=== PATIENT | female | born 2000 | race Caucasian/White ===

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

== ENCOUNTER → 2020-02-07 14:27 | Outpatient (BNVA) | payer MEDICAID, SELFPAY | PROVIDERS: PCP Family Medicine; Visit Provider Obstetrics & Gynecology | DX: N92.6 Irregular menstruation, unspecified (principal) | CPT/HCPCS: 83001; 84146; 84443; 84702 ==

== ENCOUNTER → 2020-02-14 14:20 | Outpatient (BNVA) | payer MEDICAID, SELFPAY | PROVIDERS: PCP Family Medicine; Visit Provider Obstetrics & Gynecology | DX: N93.9 Abnormal uterine and vaginal bleeding, unspecified (principal); N83.02 Follicular cyst of left ovary | CPT/HCPCS: 76830 ==

== ENCOUNTER 2020-03-19 12:27 | Outpatient (RCR) | payer MEDICAID, SELFPAY | END 2020-04-09 23:59 | disposition home or self-care (01) | LOC: SPT 12:27 | PROVIDERS: PCP Nurse Practitioner; Referring Provider Nurse Practitioner Family; Visit Provider Nurse Practitioner Family | DX: M54.2 Cervicalgia (principal); G89.29 Other chronic pain | CPT/HCPCS: 97110; 97161 ==

== ENCOUNTER 2020-04-08 15:00 | Outpatient (CLI) | payer MEDICAID, SELFPAY ==
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
== END 2020-04-08 15:01 | disposition home or self-care (01) ==
LOC: RADWPI 15:02
PROVIDERS: PCP Nurse Practitioner; Visit Provider Nurse Practitioner
DX: Z87.81 Personal history of (healed) traumatic fracture (principal); M47.812 Spondylosis without myelopathy or radiculopathy, cervical region
CPT/HCPCS: 72156; A9579

== ENCOUNTER 2020-06-03 11:15 | Outpatient (CLI) | payer MEDICAID, SELFPAY ==
--- NOTE | 2020-06-03 11:45 | US_ITS ---
WS: [id number] ULTRASOUND BREAST LEFT TECHNIQUE: Ultrasound left breast focused area of concern. CLINICAL INFORMATION: N63.20 - Unspecified lump in the left breast, unspecified quadrant COMPARISON: None. FINDINGS: Ultrasound left breast measuring 9-12:00. Normal underlying breast parenchymal tissue. No cystic or s olid lesions. No lesions to target for biopsy. No suspicious findings. US/US breast LT limited* [id number] IMPRESSION: BI-RADS 2 benign FOLLOW UP: Recommend Annual screening mammography age 40
== END 2020-06-03 11:16 | disposition home or self-care (01) ==
LOC: RADSHAW 11:16
PROVIDERS: PCP Nurse Practitioner; Visit Provider Obstetrics & Gynecology
DX: N63.20 Unspecified lump in the left breast, unspecified quadrant (principal)
CPT/HCPCS: 76642

== ENCOUNTER 2020-07-29 09:09 | Emergency (ER) | payer MEDICAID, SELFPAY ==
[2020-07-29 09:16] VITALS: BP 132/81; PULSE 100; RESP 16; TEMP 36.7; O2SAT 100; BMI 24.2
[2020-07-29 09:31] VITALS: BP 120/78; PULSE 79; RESP 18; O2SAT 98
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
[2020-07-29] MEDS: ketorolac 60 mg/2 mL INJ IM (10:22)
[2020-07-29 11:50] VITALS: BP 103/80; PULSE 64; RESP 18; TEMP 36.6; O2SAT 99
== END 2020-07-29 11:53 | disposition home or self-care (01) ==
PROVIDERS: Emergency Provider Physician Assistant; PCP Nurse Practitioner
DX: G44.319 Acute post-traumatic headache, not intractable (principal); S13.4XXA Sprain of ligaments of cervical spine, initial encounter; F17.210 Nicotine dependence, cigarettes, uncomplicated; V89.2XXA Person injured in unspecified motor-vehicle accident, traffic, initial encounter
CPT/HCPCS: 70450; 72125; 96372; 99283; J1885

== ENCOUNTER 2020-09-19 20:42 | Emergency (ER) | payer MEDICAID, SELFPAY ==
[2020-09-19 20:53] VITALS: BP 115/75; PULSE 67; RESP 16; TEMP 36.7; O2SAT 98; BMI 23.2
--- NOTE | 2020-09-19 21:03 | XRR_ITS ---
PROCEDURE INFORMATION: Exam: XR Chest Exam date and time: 09/19/2020 9:03 PM Age: 20 years old Clinical indication: Dyspnea; Additional info: Shortness of breath TECHNIQUE: Imaging protocol: XR of the chest. Views: 2 views. COMPARISON: CR XR chest 2V* [id number] 08/03/2020 2:57 PM FINDINGS: Lungs: Unremarkable. No consolidation. Pleural spaces: Unremarkable. No pleural effusion. No pneumothorax. Heart/Mediastinum: Unremarkable. No cardiomegaly. Bones/joints: Unremarkable. XR/XR chest 2V* [id number] IMPRESSION: No acute findings.
--- NOTE | 2020-09-19 21:25 | ED_ITS ---
HPI - URI/Sore Throat General: Chief Complaint: Upper Respiratory Infection Stated Complaint: FEELS LIKE THROAT CLOSING, DIFF BREATHING Time Seen by Provider: 09/19/20 21:25 History of Present Illness: HPI Narrative: Patient reports tenderness and soreness to the lower chest anterior wall/epigastric area of the abdomen. Patient reports 2 days ago she did become ill at work and threw up several times but has not thrown up since. Patient also reports some mild sore throat. Patient appears well. Patient appears no acute distress. Patient's last menstrual cycle was about 3 weeks ago. MD elicited complaint: cough Onset (ago): day(s) Consistency: constant Severity: mild Review of Systems General: Reports: 10 or more systems reviewed and unremarkable except in HPI and below Card: Reports: other (Lower anterior chest wall tenderness) [facility] ED PFSH: Medical History Irregular menses Family History Mother Cervical cancer Colon cancer Family/Other Diabetes maternal side Hypertension maternal side Thyroid condition maternal side Denies family history of Ovarian cancer Clotting disorder Heart disease Hyperlipidemia Breast cancer Anesthesia complication Bleeding disorder Uterine cancer Stroke Social History Smoking and tobacco status: current every day smoker cigarettes Packs smoked per day: 0.5 Alcohol intake: never Female Reproductive History: Date of last menstrual period: 07/22/20 Physical Exam Const: COMMON NORMALS: no acute distress and patient oriented x3 GENERAL APPEARANCE: cooperative HENMT: COMMON NORMALS: normocephalic, TM's normal bilaterally and Normal external nose present HEAD & SCALP: normal to inspection and normocephalic NOSE: Normal external nose present TYMPANIC MEMBRANE: TM's normal bilaterally MOUTH: Normal oral and palatal mucosa present THROAT: posterior oropharynx abnormal erythema Eye: GENERAL EYE: appearance normal, both eyes and all related structures Neck/C-Spine: COMMON NORMALS: full ROM Lymph: LYMPHATIC: lymphadenopathy (Mild anterior cervical) Chest: COMMONS NORMALS: normal inspection of the chest Resp: COMMON NORMALS: normal respiratory effort EFFORT & INSPECTION: Yes able to speak in complete sentences Cardio: COMMON NORMALS: regular rate and regular rhythm RATE: regular rate RHYTHM: regular rhythm GI: COMMON NORMALS: Soft to palpation AUSCULTATION: Yes normoactive bowel sounds PALPATION: Yes Soft to palpation : COMMON NORMALS: Yes no CVA tenderness BLADDER/KIDNEY EXAM: Yes no CVA tenderness Back/Pelvis: COMMON NORMALS: no CVA tenderness and thoracic and lumbar spine normal to inspection Extremity: COMMON NORMALS: normal to inspection Neuro: COMMON NORMALS: patient oriented x3 and moves all extremities Psych: COMMON NORMALS: mental status grossly normal and cooperative Skin: COMMON NORMALS: no rashes or lesions noted GENERAL SKIN EXAM: no rashes or lesions noted Course Vital Signs: Vital signs: Vital Signs Temperature 98.0 F 09/19/20 20:53 Pulse Rate 67 09/19/20 20:53 Respiratory Rate 16 09/19/20 20:53 Blood Pressure 115/75 09/19/20 20:53 Pulse Oximetry 98 09/19/20 20:53 MDM - URI/Sore Throat MDM Narrative: Medical decision making narrative: Patient comes in with lower chest wall anterior pain and sore throat. Patient reports like 2 days ago she had an bout of nausea and vomiting. Since then patient had some anterior chest wall tenderness and a sore throat. On exam abdomen is soft with some upper abdominal muscle tenderness, and lower chest wall tenderness. Lungs are clear to auscultation. Skin is warm and dry. Vital signs are normal. Differential diagnosis includes but not limited to contusion, strain, malingering. Chest x- ray was normal. Strep test was negative. Urine test was negative. Feel the patient probably has muscle strain secondary to her bout of nausea and vomiting. This was most likely caused by a viral syndrome. Strep test was negative and chest x-ray was normal. Patient was also negative for . I encouraged to drink plenty of fluids use Tylenol or ibuprofen for pain and follow-up as needed. Patient reported understanding. Lab Data: Labs: Lab Results 09/19/20 09/19/20 Range/Units 21:23 21:49 HCG, Qual Negative (Negative) Group A Strep Rapi d Negative (Negative) Discharge Plan Discharge Patient Disposition: Home Clinical Impression: Atypical chest pain Pharyngitis Qualifiers: Pharyngitis/tonsillitis etiology: unspecified etiology Qualified Code(s): J02.9 - Acute pharyngitis, unspecified Condition: Stable Prescriptions: No Action cetirizine 10 mg capsule 10 mg PO DAILY RF: 0 naproxen 500 mg tablet 500 mg PO BID PRNRF: 0 ibuprofen 400 mg tablet 400 mg PO Q8H PRN (Reason: Abnormal uterine bleeding) Qty: 90 RF: 3 cyclobenzaprine 5 mg tablet 5 mg PO BID PRN (Reason: muscle spasm) Qty: 20 RF: 0 Discharge Orders: Discharge ED (Routine); Ordered 09/19/20 Ordered By: Vijay Hopkins Referrals: Lara Ashby, COMPONENTS ENGINEER [Primary Care Provider] - Discharge Diet: Usual diet Discharge Activity: Increase activity as tolerated Patient Instructions: Chest Pain (ED), Opioid Safety Activity Restrictions/Additional Instructions: Drink plenty of water. Use acetaminophen or ibuprofen for pain. Activity as tolerated. Monitor for fever or new symptoms. Return to the ER as needed. Follow-up with primary care as needed. 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
[2020-09-19 21:35] LABS: Rapid Strep A Test Negative (Negative)
[2020-09-19 21:56] LABS: HCG Qualitative Urine. Negative (Negative)
[2020-09-19 22:25] VITALS: BP 117/77; PULSE 62; RESP 18; O2SAT 99
== END 2020-09-19 22:25 | disposition home or self-care (01) ==
PROVIDERS: Emergency Provider Nurse Practitioner Family; PCP Nurse Practitioner
DX: J02.9 Acute pharyngitis, unspecified (principal); F17.210 Nicotine dependence, cigarettes, uncomplicated
CPT/HCPCS: 71046; 81025; 87081; 87880; 99283

== ENCOUNTER 2020-10-08 16:39 | Emergency (ER) | payer MEDICAID, SELFPAY ==
--- NOTE | 2020-10-08 16:43 | XRR_ITS ---
PROCEDURE INFORMATION: Exam: XR Chest Exam date and time: 10/08/2020 4:43 PM Age: 20 years old Clinical indication: Sternal or substernal pain; Patient HX: Cp, cough, throwing up blood; Additional info: Chest pain, cough TECHNIQUE: Imaging protocol: XR of the chest. Views: 1 view. COMPARISON: CR (CHEST, ) 09/19/2020 9:37 PM FINDINGS: Lungs: Unremarkable. No consolidation. Pleural spaces: Unremarkable. No pleural effusion. No pneumothorax. Heart/Mediastinum: Unremarkable. No cardiomegaly. Bones/joints: Unremarkable. XR/XR chest 1V portable [id number] IMPRESSION: No acute findings.
[2020-10-08 17:37] VITALS: BP 122/72; PULSE 95; RESP 18; TEMP 36.9; O2SAT 96; BMI 23.2
[2020-10-08 20:25] LABS: Basophils # 0.1 10^3/uL (0.0-0.1); Basophils % 0.6 %; Eosinophils # 0.1 10^3/uL (0.0-0.8); Eosinophils % 1.2 %; Hematocrit 44.8 % (37.0-47.0); Hemoglobin 15.1 g/dL (11.5-15.3); Lymphocytes # 3.1 10^3/uL (1.5-6.5); Mean Corpuscular HGB Conc 33.7 g/dL (30.0-36.0); Mean Corpuscular Hemoglobin 30.1 pg (28.0-34.0); Mean Corpuscular Volume 89.2 fL (81-99); Monocytes # 0.5 10^3/uL (0.2-0.9); Monocytes % 5.5 %; Neutrophils # 4.45 10^3/uL (1.8-8.0); Neutrophils % 54.5 %; Nucleated Red Blood Cells % 0 %; Platelet Count 353 10^3/cmm (130-400); Red Blood Count 5.02 10^6/uL (4.1-5.3); Red Cell Distribution Width 12.3 % (12.1-15.1); White Blood Count 8.2 10^3/uL (4.5-13.0)
[2020-10-08 20:41] LABS: Alanine Aminotransferase 21 U/L (0-33); Albumin Level 4.7 g/dL (3.5-5.2); Alkaline Phosphatase 68 IU/L (35-105); Anion Gap 14.1 (5-19); Aspartate Amino Transferase 25 U/L (0-32); Blood Urea Nitrogen 7 mg/dL (6-20); Calcium 9.2 mg/dL (8.5-10.5); Carbon Dioxide 24 mmol/L (22-29); Chloride 106 mmol/L (98-107); Globulin 2.7 g/dL (1.3-4.6); Glomerular Filtration Rate 157.3 mL/min (90-130); Glucose 88 mg/dL (65-115); Osmolality Calculated 287 mOsm/kg (285-295); Potassium 4.1 mmol/L (3.5-5.1); Sodium 140 mmol/L (136-145); Total Bilirubin 0.4 mg/dL (0.15-1.2); Total Protein 7.4 g/dL (6.6-8.7)
--- NOTE | 2020-10-08 21:13 | W.ED.CHESTPA ---
HPI - Chest Pain General: Chief Complaint: Chest Pain Stated Complaint: chest pain, blood in throw up,coughing Time Seen by Provider: 10/08/20 21:13 History of Present Illness: HPI narrative: 20-year-old female comes in today for complaints of upper abdomen/lower chest wall discomfort. Patient reports that for the last 2 weeks she has had the symptoms. Patient was seen on September 19 for similar symptoms. Patient appears well. Patient appears in no acute distress. Patient does report one episode of emesis this morning with some improvement in pain afterwards and noticing some blood in the emesis. Associated symptoms: Reports nausea and vomiting Review of Systems General: Reports: 10 or more systems reviewed and unremarkable except in HPI and below Card: Reports: chest pain GI: Reports: nausea and vomiting PFSH ED PFSH: Medical History Irregular menses Family History Mother Cervical cancer Colon cancer Family/Other Diabetes maternal side Hypertension maternal side Thyroid condition maternal side Denies family history of Ovarian cancer Clotting disorder Heart disease Hyperlipidemia Breast cancer Anesthesia complication Bleeding disorder Uterine cancer Stroke Social History Smoking and tobacco status: current every day smoker cigarettes Packs smoked per day: 0.5 Alcohol intake: never Female Reproductive History: Date of last menstrual period: 07/22/20 Physical Exam Const: COMMON NORMALS: no acute distress and patient oriented x3 GENERAL APPEARANCE: cooperative HENMT: COMMON NORMALS: normocephalic, TM's normal bilaterally and Normal external nose present HEAD & SCALP: normal to inspection and normocephalic NOSE: Normal external nose present TYMPANIC MEMBRANE: TM's normal bilaterally MOUTH: Normal oral and palatal mucosa present THROAT: posterior oropharynx normal Eye: GENERAL EYE: appearance normal, both eyes and all related structures Neck/C-Spine: COMMON NORMALS: full ROM Lymph: LYMPHATIC: no lymphadenopathy noted Chest: COMMONS NORMALS: normal inspection of the chest Resp: COMMON NORMALS: normal respiratory effort EFFORT & INSPECTION: Yes able to speak in complete sentences Cardio: COMMON NORMALS: regular rate and regular rhythm RATE: regular rate RHYTHM: regular rhythm GI: COMMON NORMALS: Soft to palpation PALPATION: Yes Soft to palpation and Yes Tenderness to palpation present (GI) (Epigastric) : COMMON NORMALS: Yes no CVA tenderness BLADDER/KIDNEY EXAM: Yes no CVA tenderness Back/Pelvis: COMMON NORMALS: no CVA tenderness and thoracic and lumbar spine normal to inspection Extremity: COMMON NORMALS: normal to inspection Neuro: COMMON NORMALS: patient oriented x3 and moves all extremities Psych: COMMON NORMALS: mental status grossly normal and cooperative Skin: COMMON NORMALS: no rashes or lesions noted GENERAL SKIN EXAM: no rashes or lesions noted Course Vital Signs: Vital signs: Vital Signs Temperature 98.4 F 10/08/20 17:37 Pulse Rate 95 10/08/20 17:37 Respiratory Rate 18 10/08/20 17:37 Blood Pressure 122/72 10/08/20 17:37 Pulse Oximetry 96 10/08/20 17:37 MDM - Chest Pain MDM Narrative: Medical decision making narrative: Patient comes in with lower chest/epigastric discomfort. On exam abdomen is soft with some epigastric tenderness. Patient also has some anterior lower chest wall tenderness bilaterally. Patient appears well. Patient appears no acute distress. Vital signs are normal. Differential diagnosis includes not limited to gastritis, muscle strain, reflux. Laboratory values were unremarkable. Exam signifies some epigastric tenderness may be suggestive of gastritis. Patient did report a tender blood in her emesis this morning. Recommended patient be put on Protonix for her discomfort. Follow-up with primary care for further evaluation. Patient reported understanding and agreed to plan. Lab Data: Labs: Lab Results 10/08/20 10/08/20 Range/Units 20:18 20:18 WBC 8.2 (4.5-13.0) 10^3/ uL RBC 5.02 (4.1-5.3) 10^6/u L Hgb 15.1 (11.5-15.3) g/dL Hct 44.8 (37.0-47.0) % MCV 89.2 (81-99) fL MCH 30.1 (28.0-34.0) pg MCHC 33.7 (30.0-36.0) g/dL RDW 12.3 (12.1-15.1) % Plt Count 353 (130-400) 10^3/c mm MPV 10.0 (7.4-10.4) fL Neut % (Auto) 54.5 % Lymph % (Auto) 38.0 % Sunflower % (Auto) 5.5 % Eos % (Auto) 1.2 % Baso % (Auto) 0.6 % Neut # (Auto) 4.45 (1.8-8.0) 10^3/u L Lymph # (Auto) 3.1 (1.5-6.5) 10^3/u L Sunflower # (Auto) 0.5 (0.2-0.9) 10^3/u L Eos # (Auto) 0.1 (0.0-0.8) 10^3/u L Baso # (Auto) 0.1 (0.0-0.1) 10^3/u L Nucleated RBC % (a uto) 0 % Nucleated RBCs # 0.0 /100WBC Sodium 140 (136-145) mmol/L Potassium 4.1 (3.5-5.1) mmol/L Chloride 106 (98-107) mmol/L Carbon Dioxide 24 (22-29) mmol/L Anion Gap 14.1 (5-19) BUN 7 (6-20) mg/dL Creatinine 0.5 (0.5-0.9) mg/dL GFR Calculation 157.3 H (90-130) mL/min Glucose 88 (65-115) mg/dL Calculated Osmolal ity 287 (285-295) mOsm/k g Calcium 9.2 (8.5-10.5) mg/dL Total Bilirubin 0.4 (0.15-1.2) mg/dL AST 25 (0-32) U/L ALT 21 (0-33) U/L Alkaline Phosphata se 68 (35-105) IU/L Total Protein 7.4 (6.6-8.7) g/dL Albumin 4.7 (3.5-5.2) g/dL Globulin 2.7 (1.3-4.6) g/dL Discharge Plan Discharge Patient Disposition: Home Clinical Impression: Atypical chest pain Gastritis Qualifiers: Gastritis type: unspecified gastritis Chronicity: acute Gastritis bleeding: with bleeding Qualified Code(s): K29.01 - Acute gastritis with bleeding Condition: Stable Prescriptions: New pantoprazole 20 mg tablet,delayed release (DR/EC) 20 mg PO DAILY 28 Days RF: 0 No Action cetirizine 10 mg capsule 10 mg PO DAILY RF: 0 naproxen 500 mg tablet 500 mg PO BID PRNRF: 0 ibuprofen 400 mg tablet 400 mg PO Q8H PRN (Reason: Abnormal uterine bleeding) Qty: 90 RF: 3 cyclobenzaprine 5 mg tablet 5 mg PO BID PRN (Reason: muscle spasm) Qty: 20 RF: 0 Discharge Orders: Discharge ED (Routine); Ordered 10/08/20 Ordered By: Vijay Hopkins Referrals: Lara Ashby, EXTRACTOR OPERATOR HELPER [Primary Care Provider] - Discharge Diet: Usual diet Discharge Activity: Increase activity as tolerated Patient Instructions: Gastritis (ED), Opioid Safety Activity Restrictions/Additional Instructions: Drink plenty of fluids. Take medication 30 minutes prior to the first meal of the day. Avoid smoking, carbonated beverages, and acidic foods. Avoid eating 2 hours before bedtime. Follow-up with primary care in 1 week for recheck. Return to the emergency department for worsening symptoms or new concerns. 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
[2020-10-08 21:58] VITALS: PULSE 70; RESP 20; O2SAT 98
== END 2020-10-08 21:24 | disposition home or self-care (01) ==
PROVIDERS: Physician Assistant; Emergency Provider Nurse Practitioner Family; PCP Nurse Practitioner
DX: R07.9 Chest pain, unspecified (principal); F17.210 Nicotine dependence, cigarettes, uncomplicated
CPT/HCPCS: 71045; 80053; 85025; 99282

== ENCOUNTER 2020-10-24 15:38 | Emergency (ER) | payer MEDICAID, SELFPAY ==
[2020-10-24 15:52] VITALS: BP 114/76; PULSE 116; RESP 18; TEMP 36.6; O2SAT 98; BMI 23.2
--- NOTE | 2020-10-24 16:34 | PC.NURSE ---
PT ARRIVED TO ROOM FROM [facility] WAITING ROOM.
[2020-10-24] MEDS: sodium chloride 0.9% 1,000 ML 999 ML IV (17:33)
[2020-10-24] MEDS: ondansetron 2 mg/ML SDV 2 mL 4 MG IVP (17:33)
[2020-10-24 17:38] LABS: Basophils % 0.4 %; Eosinophils # 0.1 10^3/uL (0.0-0.8); Eosinophils % 1.2 %; Hematocrit 44.6 % (37.0-47.0); Hemoglobin 15.1 g/dL (11.5-15.3); Lymphocytes # 1.9 10^3/uL (1.5-6.5); Lymphocytes % 32.7 %; Mean Corpuscular HGB Conc 33.9 g/dL (30.0-36.0); Mean Corpuscular Volume 88.7 fL (81-99); Mean Platelet Volume 10.8 fL (7.4-10.4); Monocytes # 0.5 10^3/uL (0.2-0.9); Monocytes % 8.7 %; Neutrophils # 3.21 10^3/uL (1.8-8.0); Neutrophils % 56.8 %; Nucleated Red Blood Cells % 0 %; Platelet Count 266 10^3/cmm (130-400); Red Blood Count 5.03 10^6/uL (4.1-5.3); White Blood Count 5.7 10^3/uL (4.5-13.0)
[2020-10-24 17:58] LABS: Alanine Aminotransferase 17 U/L (0-33); Albumin Level 4.5 g/dL (3.5-5.2); Alkaline Phosphatase 58 IU/L (35-105); Anion Gap 14.8 (5-19); Aspartate Amino Transferase 22 U/L (0-32); Blood Urea Nitrogen 6 mg/dL (6-20); Calcium 8.9 mg/dL (8.5-10.5); Carbon Dioxide 25 mmol/L (22-29); Chloride 104 mmol/L (98-107); Globulin 2.9 g/dL (1.3-4.6); Glomerular Filtration Rate 157.3 mL/min (90-130); Glucose 98 mg/dL (65-115); Lipase 19 U/L (13-60); Osmolality Calculated 288 mOsm/kg (285-295); Potassium 3.8 mmol/L (3.5-5.1); Sodium 140 mmol/L (136-145); Total Bilirubin 0.4 mg/dL (0.15-1.2); Total Protein 7.4 g/dL (6.6-8.7)
[2020-10-24 18:07] LABS: HCG, Serum Qual Negative (Negative)
[2020-10-24 18:27] VITALS: RESP 14; O2SAT 98
[2020-10-24 18:29] LABS: Add Urine Culture? Yes; Add Urine Microscopic? YES; Bacteria Urine TRACE /hpf; Bilirubin Urine Neg (Negative); Blood Urine 3+ (Negative); Glucose Urine UA Norm (Normal); Ketones Urine Negative (Negative); Leukocyte Esterase Urine Negative (Negative); Nitrate Urine Negative (Negative); Protein Urine Neg (Negative); RBC Urine 15-25 /hpf (0-2); Sulfosalicylic Acid Urine Negative (Negative); Urine Appearance SL Hazy (CLEAR); Urine Color Dark Yellow (Yellow); Urobilinogen Urine Norm (Negative); WBC Urine 0-4 /hpf (0-5); pH Urine 8 (5-7)
--- NOTE | 2020-10-24 18:33 | USR_ITS ---
PROCEDURE INFORMATION: Exam: US Pelvis, Transvaginal Exam date and time: 10/24/2020 6:33 PM Age: 20 years old Clinical indication: Menstruation abnormalities; Excessive menstruation; With regular cycle; Additional info: Menorrhagia TECHNIQUE: Imaging protocol: Real-time transvaginal pelvic ultrasound with image documentation. Transvaginal imaging was used for better evaluation of the endometrium, adnexa, and/or cervix. COMPARISON: US transvaginal [id number] 02/14/2020 2:22 PM FINDINGS: Uterus/cervix: The uterus is unremarkable. The uterus measures 7.0 x 2.9 x 4.2 cm. The endometrium is unremarkable. Endometrium measures 0.8 mm. Right adnexa: Multiple subcentimeter follicles in the right ovary. The right ovary measures 3.1 x 2.3 x 2.4 cm. There is flow in the right ovary on Doppler imaging. Left adnexa: Multiple subcentimeter follicles in the left ovary. The left ovary measures 3.1 x 2.8 x 2.2 cm. There is flow in the left ovary on Doppler imaging. Intraperitoneal space: No free fluid in the pelvis. US/US transvaginal [id number] IMPRESSION: 1. No acute abnormality in the pelvis. 2. Multiple subcentimeter follicles in both right and left ovaries.
[2020-10-24 19:36] VITALS: PULSE 66; RESP 18; O2SAT 100
[2020-10-24 19:39] VITALS: BP 109/68; TEMP 37.1
--- NOTE | 2020-10-24 19:41 | ED_ITS ---
HPI - Female Genitourinary General: Chief complaint: Vaginal Bleeding Stated complaint: Vaginal bleeding Time Seen by Provider: 10/24/20 16:30 History of Present Illness: HPI Narrative: The patient is a 20-year-old female who comes to the ER complaining of passing large blood clots from her vagina. She says she has normal periods however this period is exceptionally heavy and it is unusual for her she has never passed blood clots is large. They are painful and they are passing she says. She is gone through several tampons in the past several hours. She admits unprotected sexual activity and does not know if she is . Denies vaginal discharge that is not bloody. She is currently suffering from Covid and says her symptoms are much improved over the past few days. MD elicited complaint: vaginal bleeding Onset (ago): day(s) (1) Severity: moderate Female Urogenital Radiation: Suprapubic Quality of pain: cramping Vaginal bleeding: moderate and clots Relieving factors: none Associated symptoms: Deny abdominal pain, headache(s) or vaginal discharge Possible : unsure if Date of Last Menstrual Period: 07/22/20 Review of Systems General: Reports: 10 or more systems reviewed and unremarkable except in HPI and below Const: Denies: fatigue Eyes: Denies: change in vision, blurry vision or eye redness ENMT: Denies: throat pain, swelling of lips/tongue, ear or mastoid pain or nasal congestion Card: Denies: chest pain, palpitations, irregular heart rhythm, edema, dyspnea on exertion or orthopnea Resp: Denies: dyspnea, productive cough or non-productive cough GI: Denies: abdominal pain, diarrhea or GI cramping : Reports: vaginal bleeding; Denies: flank pain, difficulty voiding, urinary frequency, urinary urgency or vaginal discharge Musc: Denies: neck pain, back pain, extremity pain, joint pain, joint redness, limited range of motion or muscle weakness Skin/Breast: Denies: rash, pruritus, erythema, skin pain or skin tenderness Neuro: Denies: headache(s), numbness in extremities, weakness in extremities, sensory changes, difficulty walking, dizziness, confusion or Slurred speech present Psych: Denies: anxiety or depression Endo: Denies: polyuria All/Imm: Denies: urticaria, throat swelling or tongue swelling PFSH ED PFSH: Medical History Irregular menses Family History Mother Cervical cancer Colon cancer Family/Other Diabetes maternal side Hypertension maternal side Thyroid condition maternal side Denies family history of Ovarian cancer Clotting disorder Heart disease Hyperlipidemia Breast cancer Anesthesia complication Bleeding disorder Uterine cancer Stroke Social History Smoking and tobacco status: current every day smoker cigarettes Packs smoked per day: 0.5 Alcohol intake: never Female Reproductive History: Date of last menstrual period: 07/22/20 Physical Exam Const: COMMON NORMALS: no acute distress, average body habitus, patient oriented x3, no limitations, healthy appearing, alert and well nourished GENERAL APPEARANCE: cooperative, comfortable, well kempt and well developed ORIENTATION/CONSCIOUSNESS: Yes awake, Yes oriented to person, Yes oriented to place and Yes oriented to time HENMT: COMMON NORMALS: normocephalic, external ears normal and Normal external nose present HEAD & SCALP: normal to inspection and normocephalic NOSE: Normal external nose present EXTERNAL EAR: Yes external ears normal MOUTH: Normal oral and palatal mucosa present THROAT: posterior oropharynx normal Eye: COMMON NORMALS: Equal, round and reactive pupils present and EOMs intact bilaterally GENERAL EYE: appearance normal, both eyes and all related structures PUPIL: Yes Equal, round and reactive pupils present Neck/C-Spine: COMMON NORMALS: full ROM, no lymphadenopathy, no meningeal signs and no JVD GENERAL: Yes normal visual inspection Lymph: LYMPHATIC: no lymphadenopathy noted Chest: COMMONS NORMALS: normal inspection of the chest and normal palpation of entire chest wall Resp: COMMON NORMALS: normal respiratory effort, No retractions, No use of accessory muscles, clear to auscultation bilaterally and percussion normal EFFORT & INSPECTION: Yes able to speak in complete sentences AUSCULTATION: clear to auscultation bilaterally PERCUSSION: percussion normal Cardio: COMMON NORMALS: no JVD, regular rate, regular rhythm, S1 normal heart sound present, S2 normal heart sound present and Peripheral pulses 2+ throughout RATE: regular rate RHYTHM: regular rhythm HEART SOUNDS: S1 normal heart sound present and S2 normal heart sound present PERIPHERAL PULSES: Peripheral pulses 2+ throughout GI: COMMON NORMALS: Normal to inspection, nondistended, normoactive bowel sounds present, Soft to palpation, non-tender and no masses INSPECTION: Yes n ormal to inspection PALPATION: Yes Soft to palpation : COMMON NORMALS: Yes no CVA tenderness BLADDER/KIDNEY EXAM: Yes no CVA tenderness Back/Pelvis: COMMON NORMALS: no CVA tenderness, thoracic and lumbar spine normal to inspection, no thoracic nor lumbar tenderness and thoraco-lumbar ROM normal Extremity: COMMON NORMALS: normal to inspection, full ROM, capillary refill normal, no joint enlargement and no pedal edema GENERAL: Yes normal exam except as noted Neuro: COMMON NORMALS: patient oriented x3, CN's II-XII intact bilaterally, moves all extremities, no focal motor deficits, no sensory deficits noted and gait normal SENSORIUM/ORIENTATION: Yes alert, Yes oriented to person, Yes oriented to place and Yes oriented to time MENINGEAL SIGNS: Yes no meningeal signs Psych: COMMON NORMALS: mental status grossly normal, Normal thought process present, cooperative, normal affect and speech normal APPEARANCE: Yes well kempt ATTITUDE: Yes calm SPEECH: Yes normal speech THOUGHT PROCESS: Normal thought process present Skin: COMMON NORMALS: no rashes or lesions noted GENERAL SKIN EXAM: no rashes or lesions noted Course Vital Signs: Vital signs: Vital Signs Temperature 98.7 F 10/24/20 19:39 Pulse Rate 66 10/24/20 19:36 Respiratory Rate 18 10/24/20 19:36 Blood Pressure 109/68 10/24/20 19:39 Pulse Oximetry 100 10/24/20 19:36 MDM - Female MDM Narrative: Medical decision making narrative: The patient came in complaining of passing blood clots and having a heavy period which is unusual for her. She is wondered if it is related to Covid she does not know. She was given a liter of fluids as she came in tachycardic. Her pulse is normalized. Hemoglobin 15.1. She is stable for discharge. Return if using a pad an hour. She will follow-up with gynecology and primary care physician next week. ER with worsening symptoms at any time. She is currently suffering from Covid which is improving over the past few days she says. Lab Data: Labs: Lab Results 10/24/20 10/24/20 10/24/20 Range/Units 17:26 17:26 17:26 WBC 5.7 (4.5-13.0) 10^3/ uL RBC 5.03 (4.1-5.3) 10^6/u L Hgb 15.1 (11.5-15.3) g/dL Hct 44.6 (37.0-47.0) % MCV 88.7 (81-99) fL MCH 30.0 (28.0-34.0) pg MCHC 33.9 (30.0-36.0) g/dL RDW 12.0 L (12.1-15.1) % Plt Count 266 (130-400) 10^3/c mm MPV 10.8 H (7.4-10.4) fL Neut % (Auto) 56.8 % Lymph % (Auto) 32.7 % [place] % (Auto) 8.7 % Eos % (Auto) 1.2 % Baso % (Auto) 0.4 % Neut # (Auto) 3.21 (1.8-8.0) 10^3/u L Lymph # (Auto) 1.9 (1.5-6.5) 10^3/u L [place] # (Auto) 0.5 (0.2-0.9) 10^3/u L Eos # (Auto) 0.1 (0.0-0.8) 10^3/u L Baso # (Auto) 0.0 (0.0-0.1) 10^3/u L Nucleated RBC % (a uto) 0 % Nucleated RBCs # 0.0 /100WBC Sodium 140 (136-145) mmol/L Potassium 3.8 (3.5-5.1) mmol/L Chloride 104 (98-107) mmol/L Carbon Dioxide 25 (22-29) mmol/L Anion Gap 14.8 (5-19) BUN 6 (6-20) mg/dL Creatinine 0.5 (0.5-0.9) mg/dL GFR Calculation 157.3 H (90-130) mL/min Glucose 98 (65-115) mg/dL Calculated Osmolal ity 288 (285-295) mOsm/k g Calcium 8.9 (8.5-10.5) mg/dL Total Bilirubin 0.4 (0.15-1.2) mg/dL AST 22 (0-32) U/L ALT 17 (0-33) U/L Alkaline Phosphata se 58 (35-105) IU/L Total Protein 7.4 (6.6-8.7) g/dL Albumin 4.5 (3.5-5.2) g/dL Globulin 2.9 (1.3-4.6) g/dL Lipase 19 (13-60) U/L HCG, Qual Negative (Negative) Urine Color (Yellow) Urine Appearance (CLEAR) Urine pH (5-7) Ur Specific Gravit y (1.005-1.030) Urine Protein (Negative) Urine Glucose (UA) (Normal) Urine Ketones (Negative) Urine Blood (Negative) Urine Nitrate (Negative) Urine Bilirubin (Negative) Prot Sulfosalicyli c Acd (Negative) Urine Urobilinogen (Negative) mg/dL Ur Leukocyte [place] ase (Negative) Urine RBC (0-2) /hpf Urine WBC (0-5) /hpf Ur Squamous Epith Cells (0-5) /hpf Amorphous Sediment Urine Bacteria (NONE) /hpf 10/24/20 Range/Units 17:49 WBC (4.5-13.0) 10^3/ uL RBC (4.1-5.3) 10^6/u L Hgb (11.5-15.3) g/dL Hct (37.0-47.0) % MCV (81-99) fL MCH (28.0-34.0) pg MCHC (30.0-36.0) g/dL RDW (12.1-15.1) % Plt Count (130-400) 10^3/c mm MPV (7.4-10.4) fL Neut % (Auto) % Lymph % (Auto) % [place] % (Auto) % Eos % (Auto) % Baso % (Auto) % Neut # (Auto) (1.8-8.0) 10^3/u L Lymph # (Auto) (1.5-6.5) 10^3/u L [place] # (Auto) (0.2-0.9) 10^3/u L Eos # (Auto) (0.0-0.8) 10^3/u L Baso # (Auto) (0.0-0.1) 10^3/u L Nucleated RBC % (a uto) % Nucleated RBCs # /100WBC Sodium (136-145) mmol/L Potassium (3.5-5.1) mmol/L Chloride (98-107) mmol/L Carbon Dioxide (22-29) mmol/L Anion Gap (5-19) BUN (6-20) mg/dL Creatinine (0.5-0.9) mg/dL GFR Calculation (90-130) mL/min Glucose (65-115) mg/dL Calculated Osmolal ity (285-295) mOsm/k g Calcium (8.5-10.5) mg/dL Total Bilirubin (0.15-1.2) mg/dL AST (0-32) U/L ALT (0-33) U/L Alkaline Phosphata se (35-105) IU/L Total Protein (6.6-8.7) g/dL Albumin (3.5-5.2) g/dL Globulin (1.3-4.6) g/dL Lipase (13-60) U/L HCG, Qual (Negative) Urine Color Dark yellow (Yellow) Urine Appearance Sl hazy (CLEAR) Urine pH 8 H (5-7) Ur Specific Gravit y 1.010 (1.005-1.030) Urine Protein Neg (Negative) Urine Glucose (UA) Norm (Normal) Urine Ketones Negative (Negative) Urine Blood 3+ H (Negative) Urine Nitrate Negative (Negative) Urine Bilirubin Neg (Negative) Prot Sulfosalicyli c Acd Negative (Negative) Urine Urobilinogen Norm (Negative) mg/dL Ur Leukocyte [place] a[place] Negative (Negative) Urine RBC 15-25 H (0-2) /hpf Urine WBC 0-4 H (0-5) /hpf Ur Squamous Epith Cells 10-15 H (0-5) /hpf Amorphous Sediment Not Reportable Urine Bacteria Trace (NONE) /hpf Discharge Plan Discharge Patient Disposition: Home Clinical Impression: Menometrorrhagia Condition: Stable Prescriptions: No Action cetirizine 10 mg capsule 10 mg PO DAILY RF: 0 naproxen 500 mg tablet 500 mg PO BID PRNRF: 0 ibuprofen 400 mg tablet 400 mg PO Q8H PRN (Reason: Abnormal uterine bleeding) Qty: 90 RF: 3 pantoprazole 20 mg tablet,delayed release (DR/EC) 20 mg PO DAILY 28 Days RF: 0 cyclobenzaprine 5 mg tablet 5 mg PO BID PRN (Reason: muscle spasm) Qty: 20 RF: 0 Discharge Orders: Discharge ED (Routine); Ordered 10/24/20 Ordered By: Abebe Thompson Referrals: Lara Ashby FNP [Primary Care Provider] - Discharge Diet: Advance as tolerated Discharge Activity: Resume usual activity Patient Instructions: Menorrhagia (ED), Opioid Safety Activity Restrictions/Additional Instructions: You are having a heavy menstrual period. We have given you IV fluids with improvement of your heart rate as well. Please follow-up with gynecology next week and your primary care physician if possible. Return to the ER with worsening symptoms at any time. Coding Level of Care Code ED Policy Manager for Priscilla Plasencia
[2020-10-24 20:06] VITALS: BP 124/91; PULSE 76; RESP 18; O2SAT 100
== END 2020-10-24 20:12 | disposition home or self-care (01) ==
PROVIDERS: Emergency Provider Family Medicine; PCP Nurse Practitioner
DX: N92.1 Excessive and frequent menstruation with irregular cycle (principal); F17.210 Nicotine dependence, cigarettes, uncomplicated
CPT/HCPCS: 76830; 80053; 81001; 83690; 84703; 85025; 87086; 96361; 96374; 99284; J2405; J7030

== ENCOUNTER 2021-02-06 14:47 | Emergency (ER) | payer MEDICAID, SELFPAY ==
[2021-02-06 14:56] VITALS: BP 137/92; PULSE 90; RESP 18; TEMP 37; O2SAT 99; BMI 22.2
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
[2021-02-06] MEDS: ketorolac 30 mg/mL INJ IM (17:49)
== END 2021-02-06 18:29 | disposition home or self-care (01) ==
PROVIDERS: Emergency Provider Emergency Medicine; PCP Nurse Practitioner
DX: M54.9 Dorsalgia, unspecified (principal); M79.601 Pain in right arm; Y04.8XXA Assault by other bodily force, initial encounter
CPT/HCPCS: 70450; 71111; 72070; 72125; 73060; 96372; 99283; J1885

== ENCOUNTER → 2021-10-04 10:00 | Outpatient (BNVA) | payer MEDICAID, SELFPAY | PROVIDERS: Visit Provider Obstetrics & Gynecology | DX: Z12.4 Encounter for screening for malignant neoplasm of cervix (principal); N89.8 Other specified noninflammatory disorders of vagina; N92.6 Irregular menstruation, unspecified | CPT/HCPCS: 84146; 84443; 84702; 85025; 87491; 87591; 88175 ==

== ENCOUNTER → 2021-10-15 08:06 | Outpatient (BNVA) | payer MEDICAID, SELFPAY | PROVIDERS: Visit Provider Obstetrics & Gynecology | DX: N92.6 Irregular menstruation, unspecified (principal); N83.291 Other ovarian cyst, right side | CPT/HCPCS: 76830 ==

== ENCOUNTER 2021-11-16 12:53 | Outpatient (CLI) | payer MEDICAID, SELFPAY ==
[2021-11-16] MEDS: iohexol 350 mg/mL 100 mL Btl IV (13:59)
--- NOTE | 2021-11-16 15:06 | CT_ITS ---
WS: [id number] CT HEAD WITH AND WITHOUT CONTRAST HISTORY: E22.1 - Hyperprolactinemia TECHNIQUE: Noncontrast 2.5 mm axial images obtained from the vertex to the skull base. Additional luca ging performed at 2.5 mm axial images status post IV contrast. Bone and soft tissue windows are revie wed. All CT scans at [facility] use at least one of these dose optimization techniques: autom ated exposure control; mA and/or kV adjustment per patient size (includes targeted exams where dose i s matched to clinical indication); or iterative reconstruction. CONTRAST: Omnipaque 350; 95 mL IV. DLP: 1877.85 mGy-cm. COMPARISON: 02/06/2021 No acute intracranial hemorrhage, edema or midline shift. No enhancing mass or vascular malformations identified. No enlargement of the pituitary gland on this CT examination. Small micronodules would be very difficult to visualize. Dural venous sinuses are normally enhancing. Visualized [place] is unremarkable. Paranasal sinuses as visualized: Clear. Mastoid air cells: Clear. Calvarium and scalp: Intact. CT/CT head wo/w con [id number] IMPRESSION: 1. No acute intracranial hemorrhage. No enhancing mass. 2. No abnormality noted at the sella turcica or pituitary gland. Microadenoma would be difficult to exclude by CT.
== END 2021-11-16 12:54 | disposition home or self-care (01) ==
LOC: RAD 12:53
PROVIDERS: Visit Provider Obstetrics & Gynecology
DX: E22.1 Hyperprolactinemia (principal)
CPT/HCPCS: 70470

== ENCOUNTER 2021-11-30 14:34 | Emergency (ER) | payer MEDICAID, SELFPAY ==
[2021-11-30 14:42] VITALS: BP 117/79; PULSE 84; RESP 17; TEMP 36.8; O2SAT 98; BMI 21.2
--- NOTE | 2021-11-30 16:05 | USR_ITS ---
PROCEDURE INFORMATION: Exam: US Duplex Artery or Vein of the Abdominal and/or Reproductive Organs, Limited Ovaries Exam date and time: 11/30/2021 5:11 PM Age: 21 years old Clinical indication: Pelvic pain; Additional info: L pelvic pain TECHNIQUE: Imaging protocol: Real-time duplex ultrasound scan of the arterial or venous flow with whitten scale, color Doppler flow and spectral waveform analysis with image documentation. Limited duplex exam focused on the ovaries. Duplex images required to evaluate for torsion and other vascular conditions. COMPARISON: US transvaginal [id number] 10/15/2021 8:17 AM FINDINGS: Right ovary/adnexa: Normal duplex of the ovary. Normal Doppler waveforms and color flow. No evidence of ovarian torsion. Left ovary/adnexa: Normal duplex of the ovary. Normal Doppler waveforms and color flow. No evidence of ovarian torsion. PROCEDURE INFORMATION: Exam: US Pelvis, Transvaginal Exam date and time: 11/30/2021 5:11 PM Age: 21 years old Clinical indication: Pelvic pain; Additional info: L pelvic pain TECHNIQUE: Imaging protocol: Real-time transvaginal pelvic ultrasound with image documentation. Transvaginal imaging was used for better evaluation of the endometrium, adnexa, and/or cervix. COMPARISON: US transvaginal [id number] 10/15/2021 8:17 AM FINDINGS: Uterus: The uterus is anteverted. Contours are normal. The uterus measures the 8.1 x 5.1 x 3.4 cm. The endometrium is homogenous. Endometrial stripe thickness measures 7 mm. Right ovary/adnexa: The right ovary is morphologically normal. There is normal blood flow in the right ovary. Right ovary measures 3.1 x 2.8 x 2.4 cm. Left ovary/adnexa: The left ovary is morphologically normal. There is normal blood flow in the left ovary. The left ovary measures 3.7 x 3.0 x 2.2 cm. Intraperitoneal space: Trace free fluid in the cul-de-sac is likely physiologic. US/US transvaginal [id number] IMPRESSION: Normal duplex of the ovaries. No evidence of ovarian torsion. IMPRESSION: No pathologic findings.
--- NOTE | 2021-11-30 16:06 | ED_ITS ---
HPI - Female Genitourinary General: Chief complaint: Abdominal Pain Stated complaint: Abd pains, spotting Time Seen by Provider: 11/30/21 15:33 Source: patient Mode of arrival: ambulatory Limitations: no limitations History of Present Illness: Patient is a 21-year-old female presents to ED today with complaint of left lower pelvis pain that began abruptly a few hours ago. She states she was at rest when she noticed a very sharp shooting pain to her left pelvis and states that she immediately felt like she needed to defecate. Patient states pain is improved upon arrival. Is reporting some vaginal spotting but states this is not abnormal. She has been seen by Dr. Johnson for irregular periods/frequent spotting. She denies vaginal discharge. She is sexually active and monogamous with her boyfriend. Patient is not having any abdominal pain. No nausea, vomiting, diarrhea, changes in bowel movements. Denies urinary symptoms. She states she was diagnosed with ovarian cysts several weeks ago. Pertinent past history: other (ovarian cysts) Onset (ago): hour(s) Location of symptoms: pelvis Severity: moderate Female Urogenital Radiation: Non-Radiating Quality of pain: sharp and stabbing Consistency: improved Vaginal discharge: none Vaginal bleeding: scant Exacerbating factors: none Relieving factors: none Associated symptoms: Reports no associated symptoms; Deny abdominal pain, headache(s), nausea or vaginal discharge Treatment prior to arrival: none Sexual activity: Yes Patient : No Date of Last Menstrual Period: 07/22/20 Review of Systems Const: Denies: fever(s), chills, body aches, fatigue or malaise Card: Denies: chest pain Resp: Denies: dyspnea GI: Denies: abdominal pain, nausea, vomiting or diarrhea : Reports: irregular period, metrorrhagia and pelvic pain; Denies: flank pain, difficulty voiding, dysuria, urinary frequency, urinary urgency, urinary hesitancy, hematuria, genital lesions, genital pruritis, vaginal odor, vaginal bleeding, vaginal discharge or dyspareunia Musc: Denies: neck pain, back pain, extremity pain or joint pain Skin/Breast: Denies: rash Neuro: Denies: headache(s), numbness in extremities, weakness in extremities, sensory changes or dizziness PFSH ED PFSH: Medical History Irregular menses Recurrent dislocation of left temporomandibular joint Surgical History S/P tonsillectomy Family History Mother Cervical cancer Colon cancer Family/Other Diabetes maternal side Hypertension maternal side Thyroid condition maternal side Denies family history of Ovarian cancer Clotting disorder Heart disease Hyperlipidemia Breast cancer Anesthesia complication Bleeding disorder Uterine cancer Stroke Female Reproductive History: Date of last menstrual period: 07/22/20 Physical Exam Const: COMMON NORMALS: no acute distress, average body habitus, patient oriented x3, no limitations, healthy appearing, alert and well nourished GENERAL APPEARANCE: cooperative ORIENTATION/CONSCIOUSNESS: Yes awake, Yes oriented to person, Yes oriented to place and Yes oriented to time Resp: COMMON NORMALS: normal respiratory effort and clear to auscultation bilaterally AUSCULTATION: clear to auscultation bilaterally Cardio: COMMON NORMALS: regular rate and regular rhythm RATE: regular rate RHYTHM: regular rhythm GI: COMMON NORMALS: Normal to inspection, nondistended, normoactive bowel sounds present, Soft to palpation, No hepatosplenomegaly present and no masses INSPECTION: Yes normal to inspection AUSCULTATION: Yes normoactive bowel sounds PALPATION: Yes Soft to palpation, Yes Tenderness to palpation present (GI) (tenderness to L pelvis; no tenderness to L abdomen ), No Guarding due to palpation present (GI), No Rigid due to palpation and Yes No hepatosplenomegaly present : COMMON NORMALS: Yes no CVA tenderness BLADDER/KIDNEY EXAM: Yes no CVA tenderness Back/Pelvis: COMMON NORMALS: no CVA tenderness Neuro: MARIA A COMA SCALE: document GCS findings [place] coma scale eye opening: Spontaneous Maria A coma scale verbal response: Orientated [place] coma scale motor response: Obey commands Maria A coma scale total score: 15 COMMON NORMALS: patient oriented x3 SENSORIUM/ORIENTATION: Yes alert, Yes oriented to person, Yes oriented to place and Yes oriented to time Skin: COMMON NORMALS: no rashes or lesions noted GENERAL SKIN EXAM: no rashes or lesions noted Course Vital Signs: Vital signs: Vital Signs Temperature 98.2 F 11/30/21 14:42 Pulse Rate 59 L 11/30/21 17:58 Respiratory Rate 18 11/30/21 17:58 Blood Pressure 94/58 11/30/21 17:58 Pulse Oximetry 100 11/30/21 17:58 Oxygen Delivery Me thod 11/30/21 14:42 MDM - Female Medical Decision Making Patient's history is certainly suspicious for an ovarian cyst. Her vital signs are stable. Blood work overall is unremarkable. Her UA showing hematuria without evidence of infection. She does have vaginal spotting so that could account for her hematuria. Pain is much improved since her arrival to the ED. US transvaginal was essentially normal. Discussed possibility of a distal urete r stone however I think this is less likely given her history and clinical presentation. Strict return to ED precautions given. Otherwise would like her to follow-up with Dr. Johnson. Lab Data : 11/30/21 16:38 11/30/21 16:38 Radiology Impressions Transvaginal US 11/30/21 16:05 IMPRESSION: Normal duplex of the ovaries. No evidence of ovarian torsion. IMPRESSION: No pathologic findings. Laboratory Results WBC 12.6 10^3/uL (4.0-10.0) H 11/30/21 16:38 RBC 4.48 10^6/uL (4.1-5.3) 11/30/21 16:38 Hgb 13.5 g/dL (11.5-15.3) 11/30/21 16:38 Hct 41.3 % (37.0-47.0) 11/30/21 16:38 MCV 92.2 fl (81-99) 11/30/21 16:38 MCH 30.1 pg (28.0-34.0) 11/30/21 16:38 MCHC 32.7 g/dL (30.0-36.0) 11/30/21 16:38 RDW 12.1 % (12.1-15.1) 11/30/21 16:38 Plt Count 331 10^3/cmm (130-400) 11/30/21 16:38 MPV 9.6 fL (7.4-10.4) 11/30/21 16:38 Neut % (Auto) 69.0 % 11/30/21 16:38 Lymph % (Auto) 23.0 % 11/30/21 16:38 [place] % (Auto) 6.1 % 11/30/21 16:38 Eos % (Auto) 1.2 % 11/30/21 16:38 Baso % (Auto) 0.5 % 11/30/21 16:38 Neut # (Auto) 8.69 10^3/uL (1.8-7.7) H 11/30/21 16:38 Lymph # (Auto) 2.9 10^3/uL (0.8-4.8) 11/30/21 16:38 [place] # (Auto) 0.8 10^3/uL (0.2-0.9) 11/30/21 16:38 Eos # (Auto) 0.2 10^3/uL (0.0-0.8) 11/30/21 16:38 Baso # (Auto) 0.1 10^3/uL (0.0-0.1) 11/30/21 16:38 Nucleated RBC % (auto) 0 % 11/30/21 16:38 Nucleated RBCs # 0.0 /100WBC 11/30/21 16:38 Sodium 138 mmol/L (136-145) 11/30/21 16:38 Potassium 4.1 mmol/L (3.5-5.1) 11/30/21 16:38 Chloride 104 mmol/L (98-107) 11/30/21 16:38 Carbon Dioxide 24 mmol/L (22-29) 11/30/21 16:38 Anion Gap 14.1 (5-19) 11/30/21 16:38 BUN 8 mg/dL (6-20) 11/30/21 16:38 Creatinine 0.4 mg/dL (0.5-0.9) L 11/30/21 16:38 GFR Calculation 201.5 mL/min (90-130) H 11/30/21 16:38 Glucose 80 mg/dL (65-115) 11/30/21 16:38 Calculated Osmolality 283 mOsm/kg (285-295) L 11/30/21 16:38 Calcium 9.1 mg/dL (8.5-10.5) 11/30/21 16:38 Total Bilirubin 0.6 mg/dL (0.15-1.2) 11/30/21 16:38 AST 21 U/L (0-32) 11/30/21 16:38 ALT 17 U/L (0-33) 11/30/21 16:38 Alkaline Phosphatase 59 U/L (35-105) 11/30/21 16:38 Total Protein 6.5 g/dL (6.6-8.7) L 11/30/21 16:38 Albumin 4.5 g/dL (3.5-5.2) 11/30/21 16:38 Globulin 2.0 g/dL (1.3-4.6) 11/30/21 16:38 HCG, Qual Negative (Negative) 11/30/21 16:38 Urine Color Yellow (Yellow) 11/30/21 16:11 Urine Appearance Clear (CLEAR) 11/30/21 16:11 Urine pH 6 (5-7) 11/30/21 16:11 Ur Specific [place] 1.015 (1.005-1.030) 11/30/21 16:11 Urine Protein Neg (Negative) 11/30/21 16:11 Urine Glucose (UA) Norm (Normal) 11/30/21 16:11 Urine Ketones Negative (Negative) 11/30/21 16:11 Urine Blood 3+ (Negative) H 11/30/21 16:11 Urine Nitrate Negative (Negative) 11/30/21 16:11 Urine Bilirubin Neg (Negative) 11/30/21 16:11 Urine Urobilinogen Norm mg/dL (Negative) 11/30/21 16:11 Ur Leukocyte Esterase 1+ (Negative) H 11/30/21 16:11 Urine RBC 0-4 /hpf (0-2) H 11/30/21 16:11 Urine WBC 40-55 /hpf (0-5) H 11/30/21 16:11 Ur Squamous Epith Cells 5-10 /hpf (0-5) H 11/30/21 16:11 Amorphous Sediment Not Reportable 11/30/21 16:11 Urine Bacteria Trace /hpf (NONE) 11/30/21 16:11 Discharge Plan Discharge Patient Disposition: Home Clinical Impression: Pelvic pain in female Condition: Stable Prescriptions: No Action cyclobenzaprine 10 mg tablet 10 mg PO TID PRN cabergoline 0.5 mg tablet 0.25 mg PO .twice a week Qty: 10 1RF Discharge Orders: Discharge ED (Routine); Ordered 11/30/21 Ordered By: Sahara Garcia Coding Level of Care Code ED Automotive Accessory Installer for Chg Fwd Exam Detailed
--- NOTE | 2021-11-30 16:15 | PC.NURSE ---
pt reports RLQ pain. Reports baseline has irregular periods, does not use any form of control. Reports started to have diarrhea and vaginal spotting, denies other vaginal discharge. reports frequent urination, denies burning with urination. Pt respirations even and unlabored, lung sounds clear bilat. bowel sounds present x4. abdomen soft to palpation. pt able to unhook herself from VS monitor and walk to bathroom without assistance
[2021-11-30 16:50] LABS: Basophils # 0.1 10^3/uL (0.0-0.1); Basophils % 0.5 %; Eosinophils # 0.2 10^3/uL (0.0-0.8); Eosinophils % 1.2 %; Hematocrit 41.3 % (37.0-47.0); Hemoglobin 13.5 g/dL (11.5-15.3); Lymphocytes # 2.9 10^3/uL (0.8-4.8); Mean Corpuscular HGB Conc 32.7 g/dL (30.0-36.0); Mean Corpuscular Hemoglobin 30.1 pg (28.0-34.0); Mean Corpuscular Volume 92.2 fl (81-99); Mean Platelet Volume 9.6 fL (7.4-10.4); Monocytes # 0.8 10^3/uL (0.2-0.9); Monocytes % 6.1 %; Neutrophils # 8.69 10^3/uL (1.8-7.7); Nucleated Red Blood Cells % 0 %; Platelet Count 331 10^3/cmm (130-400); Red Blood Count 4.48 10^6/uL (4.1-5.3); Red Cell Distribution Width 12.1 % (12.1-15.1); White Blood Count 12.6 10^3/uL (4.0-10.0)
[2021-11-30 16:55] VITALS: BP 110/78
[2021-11-30 17:17] LABS: Add Urine Microscopic? YES; Bilirubin Urine Neg (Negative); Blood Urine 3+ (Negative); Glucose Urine UA Norm (Normal); Ketones Urine Negative (Negative); Leukocyte Esterase Urine 1+ (Negative); Nitrate Urine Negative (Negative); Protein Urine Neg (Negative); RBC Urine 0-4 /hpf (0-2); Specific Gravity, Urine 1.015 (1.005-1.030); Urine Appearance Clear (CLEAR); Urine Color Yellow (Yellow); Urobilinogen Urine Norm (Negative); WBC Urine 40-55 /hpf (0-5); pH Urine 6 (5-7)
[2021-11-30 17:18] LABS: Add Urine Culture? Yes; Bacteria Urine TRACE /hpf
[2021-11-30 17:24] LABS: HCG, Serum Qual Negative (Negative)
[2021-11-30 17:44] LABS: Alanine Aminotransferase 17 U/L (0-33); Albumin Level 4.5 g/dL (3.5-5.2); Alkaline Phosphatase 59 U/L (35-105); Anion Gap 14.1 (5-19); Aspartate Amino Transferase 21 U/L (0-32); Blood Urea Nitrogen 8 mg/dL (6-20); Calcium 9.1 mg/dL (8.5-10.5); Carbon Dioxide 24 mmol/L (22-29); Chloride 104 mmol/L (98-107); Glomerular Filtration Rate 201.5 mL/min (90-130); Glucose 80 mg/dL (65-115); Osmolality Calculated 283 mOsm/kg (285-295); Potassium 4.1 mmol/L (3.5-5.1); Sodium 138 mmol/L (136-145); Total Bilirubin 0.6 mg/dL (0.15-1.2); Total Protein 6.5 g/dL (6.6-8.7)
--- NOTE | 2021-11-30 17:57 | PC.NURSE ---
pt resting in bed, denies needs at this time
[2021-11-30 17:58] VITALS: BP 94/58; PULSE 59; RESP 18; O2SAT 100
[2021-11-30 18:10] VITALS: BP 112/71
== END 2021-11-30 18:11 | disposition home or self-care (01) ==
PROVIDERS: Emergency Provider Physician Assistant
DX: R10.2 Pelvic and perineal pain (principal)
CPT/HCPCS: 36415; 76830; 80053; 81001; 84703; 85025; 87086; 99284

== ENCOUNTER 2021-12-06 06:00 | Outpatient (CLI) | payer MEDICAID, SELFPAY | END 2021-12-06 23:00 | disposition home or self-care (01) | LOC: RAD 02-07 12:32 | PROVIDERS: Visit Provider Obstetrics & Gynecology | DX: N92.6 Irregular menstruation, unspecified (principal) | CPT/HCPCS: 84146 ==

== ENCOUNTER 2022-01-19 18:13 | Emergency (ER) | payer MEDICAID, SELFPAY ==
[2022-01-19 18:23] VITALS: BP 124/80; PULSE 84; RESP 18; TEMP 36.6; O2SAT 98; BMI 22.2
--- NOTE | 2022-01-19 18:28 | XRR_ITS ---
PROCEDURE INFORMATION: Exam: XR Right Ankle Exam date and time: 01/19/2022 6:43 PM Age: 21 years old Clinical indication: Pain; Ankle; Right; Additional info: Fall TECHNIQUE: Imaging protocol: Radiologic exam of the Right ankle. Views: 3 or more views. COMPARISON: No relevant prior studies available. FINDINGS: Bones/joints: Osseous structures are intact. Negative for fracture. Joint spaces are preserved. Soft tissues: Normal. XR/XR ankle RT min 3V* [id number] IMPRESSION: No acute findings.
--- NOTE | 2022-01-19 19:53 | W.ED.EXTPRO ---
HPI - Extremity Problem General: Chief complaint: Extremity Injury, Lower Stated complaint: right foot pain Time Seen by Provider: 01/19/22 19:52 History of Present Illness: 21-year-old female comes in today for complaints of injury to the right foot. Patient reports she was messing around last night and injured her foot. Throughout the day patient had difficulty walking and ambulating on the foot due to pain. No obvious deformity is noted to the right foot and ankle. Patient is weightbearing with pain. Associated symptoms: Deny fever(s) Review of Systems General: Reports: 10 or more systems reviewed and unremarkable except in HPI and below Const: Denies: fever(s) Resp: Denies: dyspnea Musc: Reports: extremity pain PFSH ED PFSH: Medical History Irregular menses Recurrent dislocation of left temporomandibular joint Surgical History S/P tonsillectomy Family History Mother Cervical cancer Colon cancer Family/Other Diabetes maternal side Hypertension maternal side Thyroid condition maternal side Denies family history of Ovarian cancer Clotting disorder Heart disease Hyperlipidemia Breast cancer Anesthesia complication Bleeding disorder Uterine cancer Stroke Social History Smoking and tobacco status: current every day smoker (less than 0.5 ppd ) Female Reproductive History: Date of last menstrual period: 07/22/20 Physical Exam Const: COMMON NORMALS: alert Neck/C-Spine: COMMON NORMALS: full ROM Resp: COMMON NORMALS: normal respiratory effort Cardio: COMMON NORMALS: regular rate RATE: regular rate Back/Pelvis: COMMON NORMALS: thoracic and lumbar spine normal to inspection Extremity: RIGHT LOWER EXTREMITY: Yes foot & digits (Tenderness noted at the base of the fifth metatarsal, no swelling) Right foot and digits: Yes inspection, Yes palpation and Yes ROM Neuro: SENSORIUM/ORIENTATION: Yes alert Skin: COMMON NORMALS: turgor normal GENERAL SKIN EXAM: turgor normal Course Vital Signs: Vital signs: Vital Signs Temperature 98 F 01/19/22 18:23 Pulse Rate 84 01/19/22 18:23 Respiratory Rate 18 01/19/22 18:23 Blood Pressure 124/80 01/19/22 18:23 Pulse Oximetry 98 01/19/22 18:23 Oxygen Delivery Me thod 01/19/22 18:23 MDM - Extremity (Nontraumatic) Medical Decision Making 21-year-old female comes in today with complaints of injury to the right foot. On exam patient has some tenderness at the base of the fifth metatarsal with no significant swelling or bruising. Differential diagnosis includes sprain, fracture, contusion. X-ray of the ankle notes no fracture to the ankle or dislocation noted. Imaging of the base of the fifth metatarsal was noted on the ankle x-ray without any sign of abnormality. Reviewed exam with patient with recommendations for treatment and follow-up. Patient reported understanding agreed to plan. Lab Data Radiology Impressions Ankle X-Ray 01/19/22 18:28 IMPRESSION: No acute findings. Discharge Plan Discharge Patient Disposition: Home Clinical Impression: Foot sprain Qualifiers: Encounter type: initial encounter Laterality: right Qualified Code(s): S93.601A - Unspecified sprain of right foot, initial encounter Condition: Stable Prescriptions: No Action cyclobenzaprine 10 mg tablet 10 mg PO TID PRN medroxyprogesterone 10 mg tablet 10 mg PO DAILY 10 Days Qty: 10 0RF ondansetron 8 mg tablet,disintegrating 8 mg PO Q8H PRN (Reason: nausea and vomiting) 5 Days Qty: 15 0RF cabergoline 0.5 mg tablet 0.25 mg PO .once a week Qty: 14 0RF Discharge Orders: Discharge ED (Routine); Ordered 01/19/22 Ordered By: Vijay Hopkins Discharge Diet: Usual diet Discharge Activity: Increase activity as tolerated Patient Instructions: Foot Sprain (ED) Activity Restrictions/Additional Instructions: Increase activity as tolerated. Use acetaminophen and ibuprofen for pain. Use elastic bandage for comfort and support. Use crutches until he can bear weight comfortably. Follow-up with primary care in 1 week for recheck. Return to ED for new concerns. Stand Alone Forms: Work/School Release Coding Level of Care Code ED [employer] for Priscilla Plasencia
[2022-01-19] MEDS: ibuprofen 600 mg Tablet PO (20:10)
== END 2022-01-19 20:15 | disposition home or self-care (01) ==
PROVIDERS: Emergency Provider Nurse Practitioner Family
DX: S93.601A Unspecified sprain of right foot, initial encounter (principal); F17.210 Nicotine dependence, cigarettes, uncomplicated; X58.XXXA Exposure to other specified factors, initial encounter
CPT/HCPCS: 73610; 99283; E0114

== ENCOUNTER → 2022-01-25 10:30 | Outpatient (BNVA) | payer MEDICAID, SELFPAY | PROVIDERS: Visit Provider Registered Nurse Neonatal Intensive Care | DX: M79.671 Pain in right foot (principal) | CPT/HCPCS: 73630 ==

== ENCOUNTER 2022-03-01 13:18 | Emergency (ER) | payer MEDICAID, SELFPAY ==
[2022-03-01 13:26] VITALS: BP 93/70; PULSE 93; RESP 16; TEMP 36.6; O2SAT 99
[2022-03-01 14:30] VITALS: BP 107/78; PULSE 69; O2SAT 100
[2022-03-01 15:00] VITALS: BP 109/74; PULSE 60; O2SAT 100
--- NOTE | 2022-03-01 15:49 | USR_ITS ---
PROCEDURE INFORMATION: Exam: US Pelvis, Transvaginal Exam date and time: 03/01/2022 4:19 PM Age: 21 years old Clinical indication: Pelvic pain; Additional info: Pelvic pain, HX of ovarian cysts, R/O torsion TECHNIQUE: Imaging protocol: Real-time transvaginal pelvic ultrasound with image documentation. Transvaginal imaging was used for better evaluation of the endometrium, adnexa, and/or cervix. COMPARISON: US transvaginal [id number] 11/30/2021 5:11 PM FINDINGS: Uterus: 7.7 x 3.6 x 4.8 cm uterus. 8 mm endometrial stripe. Right ovary/adnexa: 3.3 x 2.2 x 2.6 cm right ovary with estimated volume 10 cc. Left ovary/adnexa: 2.2 x 1.9 x 2.1 cm left ovary with estimated volume 4.5 cc. Intraperitoneal space: Mild nonspecific free fluid in the posterior cul-de-sac and near the uterine fundus. Other findings: Small amount of complex fluid in the endometrial canal consistent with history of some vaginal bleeding today. US/US transvaginal [id number] IMPRESSION: 1. Small amount of complex fluid in the endometrial canal consistent with history of some vaginal bleeding today. 2. Otherwise normal uterus. 3. Normal ovarian perfusion bilaterally with no torsion.
[2022-03-01 15:56] LABS: Basophils % 0.4 %; Eosinophils # 0.1 10^3/uL (0.0-0.8); Eosinophils % 1.2 %; Hematocrit 42.6 % (37.0-47.0); Hemoglobin 14.4 g/dL (11.5-15.3); Lymphocytes # 1.8 10^3/uL (0.8-4.8); Lymphocytes % 32.4 %; Mean Corpuscular HGB Conc 33.8 g/dL (30.0-36.0); Mean Corpuscular Hemoglobin 30.3 pg (28.0-34.0); Mean Corpuscular Volume 89.7 fl (81-99); Mean Platelet Volume 9.8 fL (7.4-10.4); Monocytes # 0.5 10^3/uL (0.2-0.9); Monocytes % 8.7 %; Neutrophils % 56.9 %; Nucleated Red Blood Cells % 0 %; Platelet Count 216 10^3/cmm (130-400); Red Blood Count 4.75 10^6/uL (4.1-5.3); White Blood Count 5.6 10^3/uL (4.0-10.0)
[2022-03-01 16:19] LABS: Alanine Aminotransferase 22 U/L (0-33); Albumin Level 4.4 g/dL (3.5-5.2); Alkaline Phosphatase 63 U/L (35-105); Anion Gap 12.9 (5-19); Aspartate Amino Transferase 27 U/L (0-32); Blood Urea Nitrogen 9 mg/dL (6-20); Calcium 9.2 mg/dL (8.5-10.5); Carbon Dioxide 23 mmol/L (22-29); Chloride 106 mmol/L (98-107); Creatinine Clr Calc Pharmacy 140.1911; Globulin 2.3 g/dL (1.3-4.6); Glomerular Filtration Rate 155.7 mL/min (90-130); Glucose 82 mg/dL (65-115); Osmolality Calculated 284 mOsm/kg (285-295); Potassium 3.9 mmol/L (3.5-5.1); Sodium 138 mmol/L (136-145); Total Bilirubin 0.3 mg/dL (0.15-1.2); Total Protein 6.7 g/dL (6.6-8.7)
[2022-03-01] MEDS: ketorolac 30 mg/mL INJ IM (16:37)
[2022-03-01] MEDS: ondansetron 4 MG Tablet PO (16:37)
[2022-03-01 16:41] VITALS: BP 136/88; PULSE 60; O2SAT 98
--- NOTE | 2022-03-01 17:07 | ED_ITS ---
HPI - Abdominal Pain General: Chief Complaint: Abdominal Pain Stated Complaint: Dr ask for her to come in ceist rupture Time Seen by Provider: 03/01/22 14:24 History of Present Illness: 21 yo f woke up shortly after 8am. She went to the bathroom and had some vaginal bleeding and suprapubic pain/cramping that made her have to lay down. She felt hot and sweaty with some nausea. LMP 29 days ago. Patient has hx of ovarian cysts. She takes cabergoline to increase prolactin. Her periods have always been irregular and relatively light. Pt called for recommendations and was told to come to ER to r/o cysts. Pain moderate at this time. BLeeding has slowed down. UPT neg. Associated Symptoms: Reports GI cramping and nausea; Denies change in stool character, chills, constipation, diarrhea, dysuria, fever(s), hematochezia, syncope and vomiting Related Data: Date of Last Menstrual Period: 01/29/22 Review of Systems General: Reports: 10 or more systems reviewed and unremarkable except in HPI and below Const: Denies: fever(s) or chills Card: Denies: chest pain or syncope Resp: Denies: dyspnea, productive cough or non-productive cough GI: Reports: abdominal pain, nausea and GI cramping; Denies: vomiting, diarrhea, constipation, pain on defecation, change in stool character or hematochezia : Reports: vaginal bleeding, dysmenorrhea and pelvic pain; Denies: flank pain or dysuria Skin/Breast: Denies: rash or sores Neuro: Denies: headache(s) or weakness in extremities PFSH ED PFSH: Medical History Irregular menses Recurrent dislocation of left temporomandibular joint Surgical History S/P tonsillectomy Family History Mother Cervical cancer Colon cancer Family/Other Diabetes maternal side Hypertension maternal side Thyroid condition maternal side Denies family history of Ovarian cancer Clotting disorder Heart disease Hyperlipidemia Breast cancer Anesthesia complication Bleeding disorder Uterine cancer Stroke Social History Smoking and tobacco status: current every day smoker Female Reproductive History: Date of last menstrual period: 01/29/22 Physical Exam Const: COMMON NORMALS: no limitations, alert and well nourished EXAM LIMITATIONS: no altered mental status HENMT: COMMON NORMALS: normocephalic, atraumatic and external ears normal HEAD & SCALP: normocephalic and atraumatic EXTERNAL EAR: Yes external ears normal MOUTH: no muffled voice Eye: COMMON NORMALS: EOMs intact bilaterally and conjunctivae normal CONJUNCTIVA: Yes conjunctivae normal Neck/C-Spine: COMMON NORMALS: no JVD GENERAL: Yes normal visual inspection and Yes trachea midline Resp: COMMON NORMALS: normal respiratory effort, No use of accessory muscles and clear to auscultation bilaterally AUSCULTATION: clear to auscultation bilaterally Cardio: COMMON NORMALS: no JVD, regular rate and regular rhythm RATE: regular rate RHYTHM: regular rhythm GI: COMMON NORMALS: Soft to palpation PALPATION: Yes Soft to palpation, Yes Tenderness to palpation present (GI) (mild suprapubic tenderness), No Guarding due to palpation present (GI), No Hernia present, No Palpable mass present, No Ascites present, No Abdominal wall crepitus present and No Rebound tenderness present : EXTERNAL FEMALE EXAM: No Hernia present Neuro: COMMON NORMALS: moves all extremities, no focal motor deficits and no sensory deficits noted SENSORIUM/ORIENTATION: Yes alert Psych: COMMON NORMALS: mental status grossly normal, Normal thought process present, cooperative, normal affect and speech normal SPEECH: Yes normal speech THOUGHT PROCESS: Normal thought process present Skin: COMMON NORMALS: no rashes or lesions noted, turgor normal and no jaundice GENERAL SKIN EXAM: no rashes or lesions noted and turgor normal Course Vital Signs: Vital signs: Vital Signs Temperature 97.8 F 03/01/22 13:26 Pulse Rate 60 03/01/22 16:41 Respiratory Rate 16 03/01/22 13:26 Blood Pressure 136/88 03/01/22 16:41 Pulse Oximetry 98 03/01/22 16:41 Oxygen Delivery Me thod 03/01/22 16:41 MDM - Abdominal Pain Medical Decision Making ddx: painful menstruation, ovarian cyst rupture, ovarian torsion. Low suspicion for PID (sudden onset today). Patient has no dysuria, hematuria, nor any flank pain--not likely kidney stone. UPT neg so not ectopic/threatened AB. Will do pelvis US for further evaluation. US does not show any large cysts/masses. There is some fluid in endometrial canal c/w her report of light bleeding today. Small amount of free pelvic fluid--? physiologic. No other concerning findings. Patient's discomfort was easily treated with toradol and tylenol. SHe's in no distress on repeat evaluation. I recommended f/u with fertility specialist if she's not having luck treating her oligomenorrhea with primary doctor. She may need more specialized testing. D/c to home with return precautions. Lab Data 03/01/22 15:31 03/01/22 15:31 Labs/Radiology: Radiology Impressions Transvaginal US 03/01/22 15:49 IMPRESSION: 1. Small amount of complex fluid in the endometrial canal consistent with history of some vaginal bleeding today. 2. Otherwise normal uterus. 3. Normal ovarian perfusion bilaterally with no torsion. Laboratory Results WBC 5.6 10^3/uL (4.0-10.0) 03/01/22 15: RBC 4.75 10^6/uL (4.1-5.3) 03/01/22 15:31 Hgb 14.4 g/dL (11.5-15.3) 03/01/22 15: Hct 42.6 % (37.0-47.0) 03/01/22 15: MCV 89.7 fl (81-99) 03/01/22 15: MCH 30.3 pg (28.0-34.0) 03/01/22 15: MCHC 33.8 g/dL (30.0-36.0) 03/01/22 15:31 RDW 12.0 % (12.1-15.1) L 03/01/22 15:31 Plt Count 216 10^3/cmm (130-400) 03/01/22 15: MPV 9.8 fL (7.4-10.4) 03/01/22 15:31 Neut % (Auto) 56.9 % 03/01/22 15: Lymph % (Auto) 32.4 % 03/01/22 15: [place] % (Auto) 8.7 % 03/01/22 15:31 Eos % (Auto) 1.2 % 03/01/22 15:31 Baso % (Auto) 0.4 % 03/01/22 15:31 Neut # (Auto) 3.20 10^3/uL (1.8-7.7) 03/01/22 15:31 Lymph # (Auto) 1.8 10^3/uL (0.8-4.8) 03/01/22 15:31 [place] # (Auto) 0.5 10^3/uL (0.2-0.9) 03/01/22 15:31 Eos # (Auto) 0.1 10^3/uL (0.0-0.8) 03/01/22 15:31 Baso # (Auto) 0.0 10^3/uL (0.0-0.1) 03/01/22 15:31 Nucleated RBC % (auto) 0 % 03/01/22 15:31 Nucleated RBCs # 0.0 /100WBC 03/01/22 15:31 Sodium 138 mmol/L (136-145) 03/01/22 15:31 Potassium 3.9 mmol/L (3.5-5.1) 03/01/22 15:31 Chloride 106 mmol/L (98-107) 03/01/22 15:31 Carbon Dioxide 23 mmol/L (22-29) 03/01/22 15:31 Anion Gap 12.9 (5-19) 03/01/22 15:31 BUN 9 mg/dL (6-20) 03/01/22 15:31 Creatinine 0.5 mg/dL (0.5-0.9) 03/01/22 15:31 GFR Calculation 155.7 mL/min (90-130) H 03/01/22 15:31 Glucose 82 mg/dL (65-115) 03/01/22 15:31 Calculated Osmolality 284 mOsm/kg (285-295) L 03/01/22 15:31 Calcium 9.2 mg/dL (8.5-10.5) 03/01/22 15:31 Total Bilirubin 0.3 mg/dL (0.15-1.2) 03/01/22 15:31 AST 27 U/L (0-32) 03/01/22 15:31 ALT 22 U/L (0-33) 03/01/22 15:31 Alkaline Phosphatase 63 U/L (35-105) 03/01/22 15:31 Total Protein 6.7 g/dL (6.6-8.7) 03/01/22 15:31 Albumin 4.4 g/dL (3.5-5.2) 03/01/22 15:31 Globulin 2.3 g/dL (1.3-4.6) 03/01/22 15:31 Urine Color Yellow (Yellow) 03/01/22 14:50 Urine Appearance Hazy (CLEAR) A 03/01/22 14:50 Urine pH 7 (5-7) 03/01/22 14:50 Ur Specific [place] 1.010 (1.005-1.030) 03/01/22 14:50 Urine Protein Neg (Negative) 03/01/22 14:50 Urine Glucose (UA) Norm (Normal) 03/01/22 14:50 Urine Ketones 1+ (Negative) H 03/01/22 14:50 Urine Blood 3+ (Negative) H 03/01/22 14:50 Urine Nitrate Negative (Negative) 03/01/22 14:50 Urine Bilirubin Neg (Negative) 03/01/22 14:50 Urine Urobilinogen Norm mg/dL (Negative) 03/01/22 14:50 Ur Leukocyte Esterase Negative (Negative) 03/01/22 14:50 Urine RBC 0-4 /hpf (0-2) H 03/01/22 14:50 Urine WBC None /hpf (0-5) 03/01/22 14:50 Ur Squamous Epith Cells 5-10 /hpf (0-5) H 03/01/22 14:50 Amorphous Sediment Not Reportable 03/01/22 14:50 Urine Bacteria 4+ /hpf (NONE) H 03/01/22 14:50 Urine HCG, Qual Negative (Negative) 03/01/22 14:50 Discharge Plan Discharge Patient Disposition: Home Clinical Impression: Dysmenorrhea, Acute pain in female pelvis Condition: Stable Prescriptions: New naproxen 375 mg tablet 375 mg PO BID PRN (Reason: pain) Qty: 14 0RF Discontinued cyclobenzaprine 10 mg tablet 10 mg PO TID PRN No Action cabergoline 0.5 mg tablet 0.25 mg PO .once a week Qty: 14 0RF Discharge Orders: Discharge ED (Routine); Ordered 03/01/22 Ordered By: Cem Watkins Patient Instructions: Abdominal Pain (ED), Opioid Safety, Pain Management Activity Restrictions/Additional Instructions: Case Management in the ED is going to help arrange for follow-up at [facility]. Take naproxen along with tylenol for pain. Use a heating pack. This could have been a cyst that already ruptured but also might by a painful period. There was some free fluid in your pelvis, which can be physiologic or normal. If you get a fever, have worsening pain, feel light-headed or dizzy, or have worsening symptoms then return to the ER. 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
[2022-03-01 18:44] LABS: Urine Color Yellow (Yellow)
[2022-03-01 18:45] LABS: Add Urine Culture? Yes; Add Urine Microscopic? YES; Bacteria Urine 4+ /hpf; Bilirubin Urine Neg (Negative); Blood Urine 3+ (Negative); Glucose Urine UA Norm (Normal); Ketones Urine 1+ (Negative); Leukocyte Esterase Urine Negative (Negative); Nitrate Urine Negative (Negative); Protein Urine Neg (Negative); RBC Urine 0-4 /hpf (0-2); Urine Appearance Hazy (CLEAR); Urobilinogen Urine Norm (Negative); pH Urine 7 (5-7)
== END 2022-03-01 18:16 | disposition home or self-care (01) ==
PROVIDERS: Nurse Practitioner Family; Emergency Provider Emergency Medicine
DX: N94.6 Dysmenorrhea, unspecified (principal); R10.2 Pelvic and perineal pain; F17.210 Nicotine dependence, cigarettes, uncomplicated
CPT/HCPCS: 36415; 76830; 80053; 81001; 81025; 85025; 87086; 96372; 99284; J1885; Q0162

== ENCOUNTER → 2022-07-01 08:03 | Outpatient (BNVA) | payer MEDICAID, SELFPAY | PROVIDERS: Visit Provider Obstetrics & Gynecology | DX: E22.1 Hyperprolactinemia (principal) | CPT/HCPCS: 84146 ==

== ENCOUNTER → 2022-07-07 10:50 | Outpatient (BNVA) | payer MEDICAID, SELFPAY | PROVIDERS: Visit Provider Family Medicine | DX: E22.1 Hyperprolactinemia (principal); N91.5 Oligomenorrhea, unspecified; S03.00XA Dislocation of jaw, unspecified side, initial encounter; R63.4 Abnormal weight loss; X58.XXXA Exposure to other specified factors, initial encounter | CPT/HCPCS: 84439; 84443 ==

== ENCOUNTER 2022-07-22 12:02 | Outpatient (CLI) | payer MEDICAID, SELFPAY ==
[2022-07-22 13:51] LABS: Hepatitis C Virus Antibody Non-Reactive (Nonreactive)
[2022-07-22 13:53] LABS: Hepatitis B Surface Antigen Non-Reactive (Nonreactive)
[2022-07-22 14:05] LABS: HIV 1 & 2 Antibody Non-Reactive (Non-Reactiv); HIV 1 & 2 Antigen Non-Reactive (Non-Reactiv)
[2022-07-22 15:59] LABS: Rapid Plasma Reagin Syphilis Nonreactive (Nonreactive)
== END 2022-07-22 12:03 | disposition home or self-care (01) ==
PROVIDERS: PCP Family Medicine; Visit Provider Nurse Practitioner Women's Health
DX: Z11.3 Encounter for screening for infections with a predominantly sexual mode of transmission (principal)
CPT/HCPCS: 36415; 86592; 86803; 87340; 87491; 87591; 87661; 87806; 88175

== ENCOUNTER → 2022-08-02 13:34 | Outpatient (BNVA) | payer MEDICAID, SELFPAY | PROVIDERS: PCP Family Medicine; Visit Provider Family Medicine | DX: T78.40XA Allergy, unspecified, initial encounter (principal) | CPT/HCPCS: 82785; 86003 ==

== ENCOUNTER → 2022-11-02 14:01 | Outpatient (BNVA) | payer MEDICAID, SELFPAY | PROVIDERS: PCP Family Medicine; Visit Provider Nurse Practitioner Family | DX: R39.15 Urgency of urination (principal); N30.01 Acute cystitis with hematuria; N39.0 Urinary tract infection, site not specified | CPT/HCPCS: 81000; 87077; 87086; 87184 ==

== ENCOUNTER → 2022-11-14 13:50 | Outpatient (BNVA) | payer MEDICAID, SELFPAY | PROVIDERS: PCP Family Medicine; Visit Provider Family Medicine | DX: R39.89 Other symptoms and signs involving the genitourinary system (principal); Z91.018 Allergy to other foods; R30.0 Dysuria | CPT/HCPCS: 81000 ==

== ENCOUNTER 2023-01-11 18:00 | Emergency (ER) | payer MEDICAID, SELFPAY ==
[2023-01-11 18:01] VITALS: BP 115/78; PULSE 72; RESP 18; O2SAT 100; BMI 23.2
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
[2023-01-11] MEDS: famotidine 20 mg/2 mL INJ 40 MG IVP (18:37)
[2023-01-11] MEDS: sodium chloride 0.9% 500 ML 999 ML IV (18:37)
[2023-01-11] MEDS: metoclopramide 5 mg/mL SDV 2 mL 10 MG IVP (18:38)
[2023-01-11] MEDS: diphenhydrAMINE 50 mg/mL SDV 1mL IVP (18:38)
[2023-01-11] MEDS: methylPREDNISolone sod succ 60 MG in water for injection-sterile 0.96 ML 11.52 MG IVP (18:38)
[2023-01-11 18:39] LABS: Basophils # 0.1 10^3/uL (0.0-0.1); Basophils % 0.5 %; Eosinophils # 0.1 10^3/uL (0.0-0.8); Eosinophils % 0.9 %; Hematocrit 42.3 % (36-47); Lymphocytes # 3.8 10^3/uL (0.8-4.8); Lymphocytes % 35.3 %; Mean Corpuscular HGB Conc 33.8 g/dL (30-55); Mean Corpuscular Hemoglobin 30.2 pg (27-33); Mean Corpuscular Volume 89.4 fl (85-98); Mean Platelet Volume 9.7 fL (7.4-10.4); Monocytes # 0.6 10^3/uL (0.2-0.9); Monocytes % 5.6 %; Neutrophils % 57.5 %; Nucleated Red Blood Cells % 0 %; Platelet Count 330 10^3/cmm (157-399); Red Blood Count 4.73 10^6/uL (3.85-5.65); Red Cell Distribution Width 12.3 % (12.1-15.1); White Blood Count 10.62 10^3/uL (3.29-11.43)
[2023-01-11 18:54] LABS: Alanine Aminotransferase 15 U/L (0-33); Albumin Level 4.6 g/dL (3.5-5.2); Alkaline Phosphatase 64 U/L (35-105); Anion Gap 14.5 (5-19); Aspartate Amino Transferase 22 U/L (0-32); Blood Urea Nitrogen 7 mg/dL (6-20); Calcium 8.7 mg/dL (8.5-10.5); Carbon Dioxide 25 mmol/L (22-29); Chloride 103 mmol/L (98-107); Globulin 2.6 g/dL (1.3-4.6); Glucose 71 mg/dL (65-115); Osmolality Calculated 284 mOsm/kg (285-295); Potassium 3.5 mmol/L (3.5-5.1); Sodium 139 mmol/L (136-145); Total Bilirubin 0.6 mg/dL (0.15-1.2); Total Protein 7.2 g/dL (6.6-8.7)
== END 2023-01-11 19:43 | disposition home or self-care (01) ==
PROVIDERS: Physician Assistant; Emergency Provider Internal Medicine; PCP Family Medicine
DX: T78.1XXA Other adverse food reactions, not elsewhere classified, initial encounter (principal); X58.XXXA Exposure to other specified factors, initial encounter
CPT/HCPCS: 80053; 85025; 96374; 96375; 99284; J1200; J2765; J2930; J3490; J7040

== ENCOUNTER → 2023-01-12 09:50 | Outpatient (BNVA) | payer MEDICAID, SELFPAY | PROVIDERS: PCP Family Medicine; Visit Provider Family Medicine | DX: M79.641 Pain in right hand (principal) | CPT/HCPCS: 73110; 73130 ==

== ENCOUNTER → 2023-01-27 18:37 | Outpatient (BNVA) | payer MEDICAID, SELFPAY | PROVIDERS: PCP Family Medicine; Visit Provider Emergency Medicine | DX: R52 Pain, unspecified (principal) | CPT/HCPCS: 81025 ==

== ENCOUNTER 2023-02-04 13:31 | Emergency (ER) | payer MEDICAID, SELFPAY ==
[2023-02-04 13:38] VITALS: BP 114/69; PULSE 61; O2SAT 100
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
[2023-02-04] MEDS: dexamethasone 10 mg/mL INJ IM (13:52)
[2023-02-04] MEDS: famotidine 20 mg Tablet 40 MG PO (13:52)
[2023-02-04] MEDS: diphenhydrAMINE 50 mg/mL SDV 1mL IM (13:52)
[2023-02-04 13:58] VITALS: O2SAT 99
[2023-02-04 14:08] VITALS: O2SAT 98
[2023-02-04 14:30] VITALS: PULSE 65; O2SAT 98
[2023-02-04 14:48] VITALS: PULSE 65; O2SAT 98
== END 2023-02-04 14:49 | disposition home or self-care (01) ==
PROVIDERS: Emergency Provider Nurse Practitioner Family; PCP Family Medicine
DX: T78.40XA Allergy, unspecified, initial encounter (principal); F17.290 Nicotine dependence, other tobacco product, uncomplicated; X58.XXXA Exposure to other specified factors, initial encounter
CPT/HCPCS: 96372; 99284; J1100; J1200

== ENCOUNTER → 2023-04-21 14:07 | Outpatient (BNVA) | payer MEDICAID, SELFPAY | PROVIDERS: PCP Family Medicine | DX: Z20.2 Contact with and (suspected) exposure to infections with a predominantly sexual mode of transmission (principal) | CPT/HCPCS: 87491; 87591 ==

== ENCOUNTER → 2023-05-28 18:57 | Outpatient (BNVA) | payer MEDICAID, SELFPAY | PROVIDERS: PCP Family Medicine; Visit Provider Registered Nurse Neonatal Intensive Care | DX: N94.9 Unspecified condition associated with female genital organs and menstrual cycle (principal) | CPT/HCPCS: 87491; 87591; 87661 ==

== ENCOUNTER 2023-07-19 14:57 | Emergency (ER) | payer MEDICAID, SELFPAY ==
[2023-07-19 15:00] VITALS: BP 116/72; PULSE 75; RESP 14; TEMP 36.9; O2SAT 100; BMI 23.2
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
[2023-07-19 15:39] LABS: Basophils % 0.3 %; Eosinophils # 0.1 10^3/uL (0.0-0.8); Eosinophils % 0.6 %; Hematocrit 39.5 % (36-47); Lymphocytes # 2.7 10^3/uL (0.8-4.8); Lymphocytes % 27.6 %; Mean Corpuscular HGB Conc 34.2 g/dL (30-55); Mean Corpuscular Hemoglobin 30.4 pg (27-33); Mean Platelet Volume 9.6 fL (7.4-10.4); Monocytes # 0.5 10^3/uL (0.2-0.9); Monocytes % 4.8 %; Neutrophils # 6.45 10^3/uL (1.8-7.7); Neutrophils % 66.4 %; Nucleated Red Blood Cells % 0 %; Platelet Count 333 10^3/cmm (157-399); Red Blood Count 4.44 10^6/uL (3.85-5.65); Red Cell Distribution Width 11.6 % (12.1-15.1); White Blood Count 9.72 10^3/uL (3.29-11.43)
--- NOTE | 2023-07-19 15:39 | US_ITS ---
WS: [id number] EARLY OBSTETRICAL ULTRASOUND (<14 WEEKS). HISTORY: vaginal bleeding, LMP 2-12 COMPARISON: None available. Transabdominal and transvaginal imaging is performed. Normal anteverted uterus. Along the endometrial canal there are 2 well-circumscribed cysts with thick walled which are most likely gestational sacs. There is a thick membrane. There is no yolk sac or crown-rump length within either sac. T he largest sac towards the fundus measures 1.3 x 1.3 x 0.7 cm corresponding to a gestation of 5 weeks and 6 days. The smaller gestational sac more inferior measures 0.9 x 0.9 x 0.7 cm corresponding to a gestation of 5 weeks and 4 days. There is a small amount of complex material adjacent to the largest gestational sacs which could be an implantation bleed. No free fluid is identified. Both ovaries are identified and normal. No adnexal mass. IMPRESSION: 1. Possible early intrauterine twin gestation. There are 2 sacs in the endometrial canal but neither contain a yolk sac or crown-rump length. Recommend evaluation by serial beta hCG evaluation and foll ow-up transvaginal ultrasound in 2 weeks. 2. No adnexal mass. 3. There is a tiny implantation bleed or subchorionic hemorrhage adjacent to the larger gestational sac.
[2023-07-19 16:13] LABS: Add Urine Microscopic? YES; Bilirubin Urine Neg (Negative); Blood Urine Neg (Negative); Glucose Urine UA Norm (Normal); Ketones Urine 2+ (Negative); Leukocyte Esterase Urine 1+ (Negative); Nitrate Urine Negative (Negative); Protein Urine Neg (Negative); Urine Appearance Hazy (CLEAR); Urine Color Yellow (Yellow); Urobilinogen Urine Norm (Negative); pH Urine 5 (5-7)
[2023-07-19 16:20] LABS: RBC Urine 0-4 /hpf (0-2); WBC Urine 0-4 /hpf (0-5)
[2023-07-19 16:21] LABS: Add Urine Culture? No; Bacteria Urine TRACE /hpf; Mucus Urine 3+ /hpf; Squamous Epithelial Cell Urine 0-4 /hpf (0-5); Transitional Epi Cells Urine 0-4 /hpf
[2023-07-19 16:31] VITALS: BP 120/75; PULSE 82; RESP 16; TEMP 36.9; O2SAT 100
== END 2023-07-19 16:32 | disposition home or self-care (01) ==
PROVIDERS: Emergency Medicine; Emergency Provider Nurse Practitioner Family; PCP Family Medicine
DX: O20.9 Hemorrhage in early pregnancy, unspecified (principal); Z3A.08 8 weeks gestation of pregnancy
CPT/HCPCS: 36415; 76801; 76802; 76817; 81001; 81025; 84146; 84439; 84443; 84702; 85025; 86850; 86900; 99284

== ENCOUNTER 2023-07-23 19:28 | Emergency (ER) | payer MEDICAID, SELFPAY ==
[2023-07-23 19:33] VITALS: BP 121/75; PULSE 89; RESP 18; TEMP 36.9; O2SAT 99; BMI 23.0
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
[2023-07-23 20:36] LABS: Basophils % 0.4 %; Eosinophils # 0.2 10^3/uL (0.0-0.8); Eosinophils % 2.2 %; Hematocrit 35.9 % (36-47); Lymphocytes # 3.4 10^3/uL (0.8-4.8); Lymphocytes % 44.3 %; Mean Corpuscular HGB Conc 35.1 g/dL (30-55); Mean Corpuscular Hemoglobin 30.8 pg (27-33); Mean Corpuscular Volume 87.8 fl (85-98); Mean Platelet Volume 9.7 fL (7.4-10.4); Monocytes # 0.7 10^3/uL (0.2-0.9); Monocytes % 9.2 %; Neutrophils # 3.31 10^3/uL (1.8-7.7); Neutrophils % 43.8 %; Nucleated Red Blood Cells % 0 %; Platelet Count 304 10^3/cmm (157-399); Red Blood Count 4.09 10^6/uL (3.85-5.65); Red Cell Distribution Width 11.8 % (12.1-15.1); White Blood Count 7.57 10^3/uL (3.29-11.43)
[2023-07-23 20:46] LABS: Add Urine Microscopic? YES; Bilirubin Urine Neg (Negative); Blood Urine 3+ (Negative); Glucose Urine UA Norm (Normal); Ketones Urine Negative (Negative); Leukocyte Esterase Urine Trace (Negative); Nitrate Urine Negative (Negative); Protein Urine Neg (Negative); Specific Gravity, Urine 1.015 (1.005-1.030); Urine Appearance Cloudy (CLEAR); Urine Color Yellow (Yellow); Urobilinogen Urine Neg (Negative); pH Urine 7 (5-7)
[2023-07-23 20:47] LABS: Amorphous Sediment Urine 2+ /hpf; Bacteria Urine TRACE /hpf; Mucus Urine 1+ /hpf; Squamous Epithelial Cell Urine 0-4 /hpf (0-5); WBC Urine 0-4 /hpf (0-5)
[2023-07-23 21:35] VITALS: BP 116/72; PULSE 79; RESP 17; O2SAT 99
== END 2023-07-23 21:37 | disposition home or self-care (01) ==
PROVIDERS: Nurse Practitioner Family; Emergency Provider Emergency Medicine; PCP Family Medicine
DX: O20.0 Threatened abortion (principal); Z3A.01 Less than 8 weeks gestation of pregnancy
CPT/HCPCS: 36415; 81001; 84702; 85025; 99283

== ENCOUNTER → 2023-07-25 13:06 | Outpatient (BNVA) | payer MEDICAID, SELFPAY | PROVIDERS: PCP Family Medicine; Visit Provider Nurse Practitioner Women's Health | DX: O20.0 Threatened abortion (principal) | CPT/HCPCS: 84702 ==

== ENCOUNTER 2023-07-26 13:44 | Emergency (ER) | payer MEDICAID, SELFPAY ==
--- NOTE | 2023-07-26 | US_ITS ---
WS: [id number] EARLY OBSTETRICAL ULTRASOUND (<14 WEEKS). HISTORY: abd pain COMPARISON: 07/19/2023 Transvaginal imaging is submitted. There are 2 cystic structures within the endometrial canal with th ick decidual reaction surrounding the sacs. There is no pole or crown-rump length within either gestational sac. The larger sac is more superior with the gestational age calculated at approximatel y 6 weeks and 0 days. The smaller sac diameter of 5 weeks and 5 days. Gestational sacs not significan tly increased in size. There is mild heterogeneity surrounding the gestational sac suggesting implant ation bleeding or early breakdown of the sacs. No free fluid. No adnexal mass. IMPRESSION: 1. 2 intrauterine gestational sacs are reidentified without significant increase in size since 2023. No pole or cardiac activity or yolk sac identified. Favor these findings correspond with blighted ovum. Please correlate with decreasing beta hCG levels. 2. The largest gestational sac corresponds to a gestation of 6 weeks and 0 days.
[2023-07-26 14:00] VITALS: BP 107/74; PULSE 85; RESP 16; TEMP 36.6; O2SAT 100
[2023-07-26 14:52] LABS: Add Urine Microscopic? YES; Bilirubin Urine Neg (Negative); Blood Urine 2+ (Negative); Glucose Urine UA Norm (Normal); Ketones Urine Negative (Negative); Leukocyte Esterase Urine Trace (Negative); Nitrate Urine Negative (Negative); Protein Urine Neg (Negative); Specific Gravity, Urine 1.015 (1.005-1.030); Urine Appearance SL Hazy (CLEAR); Urine Color Light yellow (Yellow); Urobilinogen Urine Norm (Negative); pH Urine 6 (5-7)
[2023-07-26 14:59] LABS: Bacteria Urine 1+ /hpf; Squamous Epithelial Cell Urine 0-4 /hpf (0-5); WBC Urine 0-4 /hpf (0-5)
[2023-07-26 15:00] LABS: Add Urine Culture? No; Mucus Urine 1+ /hpf
[2023-07-26 15:02] VITALS: BP 109/72; PULSE 83; RESP 15; O2SAT 100
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
[2023-07-26 15:18] LABS: Basophils % 0.3 %; Eosinophils # 0.1 10^3/uL (0.0-0.8); Eosinophils % 0.7 %; Hematocrit 40.8 % (36-47); Lymphocytes # 2.6 10^3/uL (0.8-4.8); Lymphocytes % 29.6 %; Mean Corpuscular HGB Conc 34.8 g/dL (30-55); Mean Corpuscular Hemoglobin 30.6 pg (27-33); Mean Corpuscular Volume 87.9 fl (85-98); Monocytes # 0.5 10^3/uL (0.2-0.9); Monocytes % 5.4 %; Neutrophils # 5.62 10^3/uL (1.8-7.7); Neutrophils % 63.7 %; Nucleated Red Blood Cells % 0 %; Platelet Count 331 10^3/cmm (157-399); Red Blood Count 4.64 10^6/uL (3.85-5.65); Red Cell Distribution Width 11.9 % (12.1-15.1); White Blood Count 8.83 10^3/uL (3.29-11.43)
[2023-07-26 16:33] VITALS: BP 107/79; PULSE 86; RESP 16; O2SAT 99
== END 2023-07-26 16:33 | disposition home or self-care (01) ==
PROVIDERS: Emergency Medicine; Emergency Provider Physician Assistant; PCP Family Medicine
DX: O02.0 Blighted ovum and nonhydatidiform mole (principal)
CPT/HCPCS: 36415; 76801; 76802; 81001; 84702; 85025; 99284

== ENCOUNTER → 2023-07-28 08:08 | Outpatient (BNVA) | payer MEDICAID, SELFPAY | PROVIDERS: PCP Family Medicine; Visit Provider Nurse Practitioner Women's Health | DX: Z34.90 Encounter for supervision of normal pregnancy, unspecified, unspecified trimester (principal); O02.0 Blighted ovum and nonhydatidiform mole; O20.0 Threatened abortion | CPT/HCPCS: 84315; 84702 ==

== ENCOUNTER → 2023-08-01 13:03 | Outpatient (BNVA) | payer MEDICAID, SELFPAY | PROVIDERS: PCP Family Medicine; Visit Provider Obstetrics & Gynecology | DX: O20.0 Threatened abortion (principal) | CPT/HCPCS: 84702 ==

== ENCOUNTER → 2023-08-02 14:22 | Outpatient (BNVA) | payer MEDICAID, SELFPAY | PROVIDERS: PCP Family Medicine; Visit Provider Nurse Practitioner Women's Health | DX: Z34.90 Encounter for supervision of normal pregnancy, unspecified, unspecified trimester (principal) | CPT/HCPCS: 76817 ==

== ENCOUNTER 2023-09-12 09:30 | Emergency (ER) | payer MEDICAID, SELFPAY ==
[2023-09-12 10:09] VITALS: BP 108/70; PULSE 63; RESP 18; TEMP 36.6; O2SAT 98; BMI 21.4
[2023-09-12 11:05] LABS: Basophils # 0.1 10^3/uL (0.0-0.1); Basophils % 0.8 %; Eosinophils # 0.2 10^3/uL (0.0-0.8); Eosinophils % 3.7 %; Lymphocytes # 2.9 10^3/uL (0.8-4.8); Lymphocytes % 45.2 %; Mean Corpuscular HGB Conc 32.9 g/dL (30-55); Mean Corpuscular Hemoglobin 30.6 pg (27-33); Mean Corpuscular Volume 93.2 fl (85-98); Monocytes # 0.4 10^3/uL (0.2-0.9); Monocytes % 5.7 %; Neutrophils # 2.79 10^3/uL (1.8-7.7); Neutrophils % 44.3 %; Nucleated Red Blood Cells % 0 %; Platelet Count 340 10^3/cmm (157-399); Red Blood Count 4.83 10^6/uL (3.85-5.65); Red Cell Distribution Width 12.3 % (12.1-15.1)
[2023-09-12 11:30] LABS: Alanine Aminotransferase 15 U/L (0-33); Albumin Level 5.2 g/dL (3.5-5.2); Alkaline Phosphatase 64 U/L (35-105); Anion Gap 15.3 (5-19); Aspartate Amino Transferase 21 U/L (0-32); Blood Urea Nitrogen 12 mg/dL (6-20); Calcium 9.2 mg/dL (8.5-10.5); Carbon Dioxide 22 mmol/L (22-29); Chloride 106 mmol/L (98-107); Creatinine Clr Calc Pharmacy 132.8238; Globulin 3.3 g/dL (1.3-4.6); Glomerular Filtration Rate 152.9 mL/min (90-130); Glucose 85 mg/dL (65-115); Osmolality Calculated 287 mOsm/kg (285-295); Potassium 4.3 mmol/L (3.5-5.1); Sodium 139 mmol/L (136-145); Total Bilirubin 0.4 mg/dL (0.15-1.2); Total Protein 8.5 g/dL (6.6-8.7)
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
[2023-09-12 11:54] VITALS: BP 109/74; PULSE 54; RESP 16; O2SAT 99
[2023-09-12 12:03] LABS: Glucose Urine UA Norm (Normal); Ketones Urine Negative (Negative); Protein Urine Trace (Negative); Urine Appearance Clear (CLEAR); Urine Color Yellow (Yellow); pH Urine 6.5 (5-7)
[2023-09-12 12:04] LABS: Add Urine Microscopic? YES; Bilirubin Urine Neg (Negative); Blood Urine 2+ (Negative); Leukocyte Esterase Urine Trace (Negative); Nitrate Urine Negative (Negative); Urobilinogen Urine Norm (Negative)
[2023-09-12 12:07] LABS: Add Urine Culture? No; Bacteria Urine TRACE /hpf; Mucus Urine 1+ /hpf; RBC Urine 0-4 /hpf (0-2); Squamous Epithelial Cell Urine 0-4 /hpf (0-5); Transitional Epi Cells Urine 0-4 /hpf; WBC Urine 0-4 /hpf (0-5)
[2023-09-12 12:23] LABS: HCG Quantitative 2.83 mIU/mL
[2023-09-12 13:30] VITALS: BP 99/68; PULSE 50; O2SAT 100
--- NOTE | 2023-09-12 14:47 | US_ITS ---
WS: [id number] US transvaginal [id number] HISTORY: on ovulation stimulant; sponta ab 08/05; pelvic pain now COMPARISON: 08/02/2023 Uterus: 7.9 cm x 5.4 cm x 3.6 cm. Normal size anteverted uterus. No fibroid or mass. Endometrium: 0.4 cm. Normal. Right ovary: 3.2 cm x 2.4 cm x 2.5 cm. Normal size and vascularity, no cystic or solid masses. Left ovary: 2.6 cm x 1.6 cm x 3.0 cm. Normal size and vascularity, no cystic or solid masses. No free fluid in the cul-de-sac. US/US transvaginal [id number] IMPRESSION: Normal transvaginal pelvic ultrasound. No residual retained products of concept ion.
--- NOTE | 2023-09-12 15:02 | PC.NURSE ---
PT UPSET THAT ULTRASOUND IS NOT BEING BROUGHT TO PT ROOM. PT STATES I DONT KNOW WHY THEY CANNOT BRING THE ULTRASOUND MACHINE TO ME. THEY HAVE DONE IT BEFORE. PT EDUCATED ON THIS BEING THE QUICKEST WAY TO OBTAIN AN ULTRASOUND. PT STILL UPSET BUT AGREED TO GO TO THE ULTRASOUND.
[2023-09-12 15:26] VITALS: BP 112/67; PULSE 55; O2SAT 95
[2023-09-12 15:56] VITALS: BP 91/74; PULSE 47; O2SAT 97
== END 2023-09-12 15:57 | disposition home or self-care (01) ==
PROVIDERS: Physician Assistant; Emergency Provider Emergency Medicine; PCP Family Medicine
DX: N94.6 Dysmenorrhea, unspecified (principal); Z72.0 Tobacco use
CPT/HCPCS: 36415; 76830; 80053; 81001; 81025; 84702; 85025; 99284